=== PATIENT | male | born 1995 | race Caucasian/White ===

== ENCOUNTER 2024-12-11 01:20 | Inpatient (IN) | payer OTHER, SELFPAY ==
--- NOTE | ~2024-12-11 | CT_ITS ---
EXAMINATION: CT SOFT TISSUE NECK WITH CONTRAST CLINICAL INFORMATION: Strangulation, rule out vascular or soft tissue injury. COMPARISON: None available. TECHNIQUE: Following the intravenous administration of 80 mL of Omnipaque 350 intravenous contrast, helical imaging was performed in the axial plane with generation of coronal and sagittal reformatted images. This CT examination was performed using dose optimization techniques as appropriate, variously including the following: *Automated exposure control *Adjustment of mA and/or kV according to patient size (this includes techniques or standardized protocols for targeted exams where dose is matched to indication/reason for exam; i.e. extremities or head) *Use of iterative reconstruction technique FINDINGS: Lymph Nodes: -No abnormal lymphadenopathy. Carotid Sheath Structures: -Normal. No evidence of vascular injury. No hematoma. Salivary Glands: -Normal. Mucosal Space: -Mildly prominent tonsillar pillars soft tissues, probably reactive in nature. -Otherwise, oropharyngeal, nasopharyngeal, hypopharyngeal soft tissue structures appear normal. Mild thickening of the right aryepiglottic fold, nonspecific. Otherwise normal oropharynx, hypopharynx, and epiglottis. The suprahyoid airway is maintained. Visceral Space: -Thyroid gland: Normal. -The laryngeal and thyroid cartilage appear intact without fracture. -The right true vocal fold is lateralized, and there is mild prominence of the right laryngeal ventricle, suggesting right vocal cord paralysis or paresis. -The subglottic trachea is mild narrowing at the level of the thyroid gland uncertain etiology or significance. (Series 2, images [id number]). Retropharangeal Space: -Normal. Parapharyngeal Fat Planes: -Undisturbed and normal. Ironer Or Presser Spaces: -Normal. Imaged Intracranial Contents: -No mass effect, edema, or abnormal enhancement. Cortical and dural venous sinuses are patent. The skull base is normal. Globes and Orbits: -Normal. Paranasal Sinuses/Mastoids/Tympanic Spaces: -Moderate to severe circumferential mucosal thickening left maxillary sinus with associated air-fluid level. Mild mucosal thickening right maxillary sinus with tiny air-fluid level. Mild scattered mucosal thickening throughout the ethmoid sinuses right greater than left. Lung Apices and Superior Mediastinal Structures: -Superior mediastinal structures is minimally prominent main pulmonary artery. There are prominent lymph nodes in both hilar regions, the subcarinal region, and prevascular region, the largest measuring 1.1 cm in short axis. This is of uncertain etiology. Sarcoidosis is a consideration among other etiologies. -Imaged upper lungs are mildly degraded by motion artifact. There is mild mosaic attenuation, without focal consolidation or pneumothorax. There are no effusions. The central airways appear normal. -The partially imaged heart appears likely mildly enlarged. Bony Structures: -No suspicious bone lesions. No fractures. -No significant cervical degenerative change. -Suggestion of old right craniotomy, only partially imaged. -Normal TM joints. OTHER: -There is a ligature uriarte around the mid neck. CT/CT soft tissue neck w IV con IMPRESSION: 1. No definite fracture of the laryngeal cartilages, or bony fracture. 2. There are findings highly suggestive of right vocal cord paralysis or paresis. Correlation with prior history recommended. Direct visualization also recommended. 3. Mild narrowing of the subglottic trachea, at the level of the thyroid gland, uncertain significance, appearance suggests likely not based upon acute trauma, but rather chronic. This can be seen in prolonged intubation, intubation injury, prior tracheostomy, and with tracheomalacia. 4. No evidence of vascular injury or hematoma. Soft tissues are grossly unremarkable. 5. Maxillary sinus disease left greater than right, with air-fluid levels. Findings could represent acute sinusitis in the appropriate clinical setting. 6. Mediastinal and hilar lymphadenopathy, uncertain significance or etiology. Sarcoidosis is a consideration, among other etiologies. 7. Mild mosaic attenuation the lung parenchyma, most likely mild air trapping. Differential includes constrictive (obliterative) bronchiolitis, hypersensitivity pneumonitis, as well as less commonly bronchial asthma, vasculitis, and chronic PE. 8. Mild cardiomegaly suspected. Heart is only partially imaged. 9. There is a ligature melinda in the neck soft tissues. Electronically signed by: Sergio Felix MD 12/11/2024 08:38 AM [facility] [place]
--- NOTE | ~2024-12-11 | CT_ITS ---
CLINICAL HISTORY: abd pain, n v, constipation CT abdomen and pelvis without contrast Comparison: None Findings: Lung bases clear. Cholelithiasis. Otherwise normal gallbladder and bile ducts. Mild splenomegaly. Normal liver, pancreas, and adrenal glands. Unremarkable kidneys, ureters, and urinary bladder. No free fluid or free air within the abdomen or pelvis. Normal stomach, small bowel, appendix, and colon. Liquid stool throughout most of the colon. No aortic aneurysm. Bones intact. IMPRESSION: 1. Liquid stool throughout most of the colon consistent with diarrheal illness. 2. Mild splenomegaly. 3. Cholelithiasis with no findings of biliary ductal dilatation or cholecystitis. This document has been electronically signed by: Earl Iverson MD on 12/22/2024 21:33:50
--- NOTE | ~2024-12-11 | XR_ITS ---
EXAMINATION: XR CHEST CLINICAL INFORMATION: adenopathy on CT neck COMPARISON: March 22, 2013. TECHNIQUE: 2 views of the chest were obtained. FINDINGS: No consolidation, pleural effusion or pneumothorax. Cardiomediastinal silhouette size is normal. Osseous structures are intact. XR/XR chest 2V IMPRESSION: No acute airspace disease. Electronically signed by: Donato Díaz MD 12/11/2024 10:06 AM [facility] [place]
--- NOTE | ~2024-12-11 | XR_ITS ---
EXAMINATION: XR ABDOMEN KUB CLINICAL INDICATION: constipation,diarrhea,?obstruction COMPARISON: None available. TECHNIQUE: AP view of the abdomen. FINDINGS: There are minimally dilated loops of small bowel in the left midabdomen, measuring up to 4.8 cm. There is no thickening of the valvulae conniventes. There is mild gaseous distention of the right colon. No significant stool burden. No free air identified. No organomegaly or abnormal soft tissue calcifications. No bony abnormalities. XR/XR KUB IMPRESSION: 1. Findings which may suggest ileus or small bowel obstruction. Electronically signed by: Sergio Felix MD 12/22/2024 04:58 PM EDT
[2024-12-11 01:38] VITALS: BP 150/97; PULSE 98; RESP 17; TEMP 37; O2SAT 99; BMI 31.5
[2024-12-11 01:59] VITALS: BP 150/97; PULSE 98; RESP 17; TEMP 37; O2SAT 99
--- NOTE | 2024-12-11 02:03 | PC.NURSE ---
Patient presents from home tonight after an unsuccessful attempt at hanging himself from his closet door with a plastic cord. Patient is noted to have ligature uriarte around the neck. He endorses losing consciousnesses prior to falling and hitting a ladder that was nearby to assist in the attempt. Patient complains of difficulty swallowing and throat pain but does also endorse vocal cord paralysis since a young age. MD [facility] immediately made aware of ligature uriarte and difficulty swallowing.
[2024-12-11 02:11] LABS: Basophils Percent Auto 0.4 % (0-2); PLT CLUMP 1; SCAN SMEAR FLAG 1
[2024-12-11 02:13] LABS: Eosinophils Absolute Auto 0.3 X10*3/uL (0.0-0.4); Eosinophils Percent Auto 2.8 % (0-4); Hematocrit 50.9 % (42.0-52.0); Hemoglobin 18.2 g/dl (14.0-18.0); Imm Gran Abs Auto 0.03 X10*3/uL (0.00-0.03); Imm Gran Pct Auto 0.3 % (0.0-0.4); Lymphocytes Absolute Auto 2.5 X10*3/uL (1.2-4.9); Lymphocytes Percent Auto 27.2 % (20-40); MANUAL DIFF FLAG SCAN; Mean Corpuscular HGB Conc 35.8 g/dl (31.0-36.0); Mean Corpuscular Hemoglobin 30.8 pg (27.0-33.0); Mean Corpuscular Volume 86.1 fL (80.0-98.0); Mean Platelet Volume 10.5 fL (9.4-12.4); Monocytes Absolute Auto 0.4 X10*3/uL (0.1-1.2); Monocytes Percent Auto 4.6 % (2-11); Neutrophils Percent Auto 64.7 % (45-73); Red Blood Count 5.91 X10*6/uL (4.60-5.80); Red Cell Distribution Width 12.3 % (11.0-16.0)
[2024-12-11 02:14] LABS: White Blood Count 9.3 X10*3/uL (4.8-10.8)
--- NOTE | 2024-12-11 02:34 | ED.GENADULT ---
HPI - General Adult General Chief complaint: Psychiatric Symptoms Stated complaint: SI Time Seen by Provider: 12/11/24 02:19 Source: patient Mode of arrival: ambulatory Limitations: no limitations History of Present Illness ED Provider: DR. Hernández HPI narrative: 29-year-old male who came to the ED for evaluation after attempt to strangulate himself at home. Patient has been going through depression for the past few months last night he hanging a plastic rope on the door and climbed a ladder and hang himself in the rope, the patient dropped on the floor after few seconds patient thinks that he passed out, no voice change (patient with a history of 1 vocal cord paralysis ) able to swallow in the emergency department, no neck pain. Patient has an obvious ligature uriarte around the neck. Related Data Allergies Allergy/AdvReac Type Severity Reaction Status Date / Time egg [EGG] Allergy Unknown ITCHY Verified 12/11/24 01:54 THROAT/VOMITING nickel [NICKEL] Allergy Unknown UNKNOWN Verified 12/11/24 01:54 Review of Systems Review of Systems: all other systems are reviewed and are negative Constitutional: Reports as per HPI and Reports no additional constitutional complaints Eyes: Reports as per HPI and Reports no additional eye complaints Reports system reviewed and no additional complaints, except as documented Cardiovascular: Reports as per HPI and Reports no additional cardiovascular complaints Respiratory: Reports as per HPI and Reports no additional respiratory complaints Gastrointestinal: Reports as per HPI and Reports no additional gastrointestinal complaints Genitourinary: Reports no additional female genitourinary complaints Musculoskeletal: Reports no additional musculoskeletal complaints Skin/Breast: Reports system reviewed and no additional complaints, except as docu Psychiatric: Reports no additional psychiatric complaints Endocrine: Reports no additional endocrine complaints Hematologic/Lymphatic: Reports no additional hematologic/lymphatic complaints Allergic/Immunologic: Reports no additional allergic/immunologic complaints Reports system reviewed and no additional complaints, except as documented and Reports Abnormal speech present [facility] Social History Social History Smoked in Last 30 Days: Yes Use of substances other than those prescribed or required for medical reasons: No Advance Directives: No Advance Directives Information Provided: Yes Do you have a plan to hurt others: No Plan Physical Exam ED Vital Signs: Vital Signs - 24 hr 12/11/24 01:38 12/11/24 01:59 Temperature 98.6 F 98.6 F Pulse Rate 98 98 Respiratory Rate 17 17 Blood Pressure 150/97 H 150/97 H Pulse Oximetry 99 99 Oxygen Delivery Method Room Air Room Air BMI result Body Mass Index 31.5 Vital signs have been reviewed and appear to be correct. Blood pressure elevated. Heart rate normal. Respiratory rate normal. Temperature normal. Oxygen saturation normal. Appearance: Alert. Oriented X3. No acute distress. Head: Normal external exam. Normocephalic. Atraumatic. No Farr signs noted. No raccoon eyes noted Eyes: PERRLA. EOMI. Conjunctiva and sclera normal. Eyelids normal. ENT: TM's Normal. Pharynx normal. Uvula midline. Moist mucous membranes. No trismus noted. No drooling noted. No muffled voice noted. Neck: ligature melinda around the anterior aspect of the neck. CVS: Normal heart rate and rhythm. Heart sound normal. No murmurs noted. Pulses normal throughout. Respiratory: No respiratory distress. Painless inspiration. Breath sounds normal. No wheezes/rales/rhonchi noted. Chest nontender. No accessory muscle usage noted or decreased air movement noted. Abdomen: Soft and nontender. Bowel sounds normal in all 4 quadrants. No distention noted. No organomegaly noted. No visible injury noted. Back: No CVA tenderness. Full range of motion noted. Skin: Skin warm and dry. Normal skin color. Normal skin turgor. No rashes/lesions/lacerations noted. Extremities: No lower extremity edema. Extremities exhibit normal range of motion. Extremities nontender. Neuro: Mental status: Normal attention, orientation, memory, and affect. Cranial nerves: Pupils are equal, round and reactive to light, EOMI, visual vieyra are fall, face is symmetric, facial sensations are normal. Motor examination normal muscle tone, strength to 4 extremities. DTR are +2, planter's are flexor. Sensory exam; normal coordination, no ataxia, gait stable. Cerebellar exam: [id number]-[id number] and eapy-vf-bwnf is normal. Extrapyramidal system: No tremors, no rigidity with normal facial expressions. Pronator drift not present Patient Orientation: Person, Place, Time and Situation, okay hygiene and grooming. Fair eye contact, attentive, no tics or tremors. Level of Consciousness: Awake, Appropriate and Alert Patient Behavior: Appropriate, Guarded, Cooperative and Anxious Mood Description: Constricted, Blunted and Apprehensive Affect Description: Constricted, Blunted and Apprehensive Patient Cognition Impaired: No Ability to Follow Directions: Excellent Speech Pattern: Clear, Appropriate and Spontaneous Speech, nonpressured, spontaneous with regular rate and rhythm, normal volume and prosody. No dysarthria. Memory Description: Intact, Immediate Intact and Short Term Intact Hallucinations: None Delusions: Not Present Thought Process: Intact Thought Content: positive for Intact, positive for Logical, denies Suicidal Ideation and denies Homicidal Ideation. Depressive Symptoms: Not present. Judgement and Insight: Limited but adequate. Course Reevaluation(s) Reevaluation #1: 29-year-old male s/p attempt to strangulated himself, no acute soft tissue damage to the neck, normal neuro exam, patent airway, no stridor. will clear medically full care team to evaluate. Continue one-to-one observation. Await for CT soft tissue for evaluation of neck structure tear or contusion case signed out to Dr. Kenny Time: 06:47 Medications Administered Discontinued Medications Generic Name Dose Route Start Last Admin Trade Name Freq PRN Reason Stop Dose Admin Sodium Chloride 1,000 mls @ 999 mls/hr 12/11/24 03:30 12/11/24 03:52 Ns IV 12/11/24 04:30 Infused .Q1H1M JASMINA Infusion Iohexol 80 ml 12/11/24 03:49 12/11/24 03:50 Iohexol 350 Mg/Ml 100 Ml Infus..Btl IV 12/11/24 03:50 80 ml ONCE ONE Administration Medical Decision Making Differential Diagnosis Differential Diagnoses: The differential diagnosis associated with the presentation includes ( Soft tissue neck damage, cervical spine fracture, airway compromise, medical clearance, electrolyte derangement, severe anemia.) Admission/Observation Consideration of admission/observation: Escalation of care including admission/observation considered Lab Data MDM Lab Attestation statement: I reviewed the patient's lab results. 12/11/24 02:06 12/11/24 02:06 Labs: Lab Results 12/11/24 Range/Units 02:06 WBC 9.3 (4.8-10.8) X10*3/uL RBC 5.91 H (4.60-5.80) X10*6/uL Hgb 18.2 H (14.0-18.0) g/dl Hct 50.9 (42.0-52.0) % MCV 86.1 (80.0-98.0) fL MCH 30.8 (27.0-33.0) pg MCHC 35.8 (31.0-36.0) g/dl RDW 12.3 (11.0-16.0) % Plt Count 172 (160-400) X10*3/uL MPV 10.5 (9.4-12.4) fL Immature Gran % (Auto) 0.3 (0.0-0.4) % Neut % (Auto) 64.7 (45-73) % Lymph % (Auto) 27.2 (20-40) % [place] % (Auto) 4.6 (2-11) % Eos % (Auto) 2.8 (0-4) % Baso % (Auto) 0.4 (0-2) % Lymph # (Auto) 2.5 (1.2-4.9) X10*3/uL [place] # (Auto) 0.4 (0.1-1.2) X10*3/uL Eos # (Auto) 0.3 (0.0-0.4) X10*3/uL Baso # (Auto) 0.0 (0.0-0.2) X10*3/uL Abs Immat Gran (auto) 0.03 (0.00-0.03) X10*3/uL Absolute Neuts (auto) 6.0 (2.0-8.3) x10*3/uL Absolute Nucleated RBC 0.000 (0.0-0.012) X10*3/uL Nucleated RBC % (auto) 0.0 (0.0-0.2) /100WBC Smear Tech's Comments VERIFIED Sodium 139 (135-145) mmol/L Potassium 3.6 (3.3-5.1) mmol/L Chloride 106 (96-108) mmol/L Carbon Dioxide 23 (22-29) mmol/L Anion Gap 14 (12-20) BUN 13 (9-16) mg/dL Creatinine 0.82 (0.5-1.4) mg/dL Estim Creat Clear Calc 135.9 Estimated GFR > 60 Random Glucose 92 (60-115) mg/dL Calcium 9.2 (8.4-10.2) mg/dL Total Bilirubin 1.1 H (0.0-1.0) mg/dL AST 23 (5-37) U/L ALT 21 (0-40) U/L Alkaline Phosphatase 78 (39-117) U/L Total Protein 8.5 H (6.5-8.0) g/dL Albumin 4.7 (3.5-5.0) g/dL Salicylates < 5.0 L (15-30) mg/dL Ethyl Alcohol < 10 mg/dL Independent Interpretation I performed an independent interpretation of an: CT Scan ( CT soft tissue of the neck:) Radiology Impression Discussion of test interpretation with radiology: I have reviewed the radiologist's reading. Discharge Plan Discharge Clinical Impression: Depression, Suicidal ideation, Strangulation or suffocation by means, undetermined whether accidentally or purposely inflicted Patient Disposition: Still a Patient Interventions: [place]-Suicide Risk Severity Scale Last Done: 12/11/24 01:55 Print Language: Swedish
[2024-12-11 02:36] LABS: Alanine Aminotransferase 21 U/L (0-40); Albumin Level 4.7 g/dL (3.5-5.0); Anion Gap 14 (12-20); Aspartate Amino Transferase 23 U/L (5-37); Bilirubin Total 1.1 mg/dL (0.0-1.0); Blood Urea Nitrogen 13 mg/dL (9-16); Calcium 9.2 mg/dL (8.4-10.2); Carbon Dioxide 23 mmol/L (22-29); Chloride 106 mmol/L (96-108); Creatinine Clr Calc Pharmacy 135.9; Estimated Glomerular Filt Rate > 60; Ethanol < 10 mg/dL; Glucose Random 92 mg/dL (60-115); Potassium 3.6 mmol/L (3.3-5.1); Sodium 139 mmol/L (135-145); Total Protein 8.5 g/dL (6.5-8.0)
[2024-12-11 02:43] LABS: Platelet Count 172 X10*3/uL (160-400); SLIDE REVIEW VERIFIED
[2024-12-11 02:59] LABS: Alkaline Phosphatase 78 U/L (39-117)
[2024-12-11 03:04] LABS: Salicylate < 5.0 mg/dL (15-30)
[2024-12-11] MEDS: 0.9 % Sodium Chloride 1,000 ML 999 ML IV (03:34)
[2024-12-11] MEDS: iohexoL 350 MG/ML 100 ML INFUS..BTL 80 ML IV (03:50)
--- OUTSIDE RECORDS SUMMARY | 2024-12-11 06:26 | XMS_ITS | Encounter Summary ---
Author Organization [facility] Address [address] [place] [address] Phone Care Team Providers Care Electrical Service Technician Name Role Phone Med Garrett MD Primary Care Provider [phone] Encounter Details Date Type Department Care Team (Late st Contact Info) Description 07/24/[address] [facility] [place] [address] [place], [place] [id number] Family Medicine, Physician [address] [place] [address] Social History Tobacco Use Types Packs/Day Years Used Date Smoking Tobacco: Never Assessed Sex and Gender Information Value Date Recorded Sex Assigned at Not on file Legal Sex Male 4:46 PM EDT Gender Identity Not on file Sexual Orientation Not on file documented as of this encounter Plan of Treatment Not on file documented as of this encounter Visit Diagnoses Not on filedocumented in this encounter Care Teams Electrical Service Technician Relationship Specialty Start Date End Date Med Garrett MD [address] [place] [address] PCP - General 05/24/17 11/29/22 documented as of this encounter
--- OUTSIDE RECORDS SUMMARY | 2024-12-11 06:26 | XMS_ITS | Encounter Summary ---
Author Organization [facility] Address [address] [place] [address] Phone Care Team Providers Care Harbormaster Name Role Phone Med Garrett MD Primary Care Provider [phone] Encounter Details Date Type Department Care Team (Late st Contact Info) Description 07/25/2010 [place] [facility] [place] [address] [place], [place] [phone] Family Medicine, Physician [address] [place] [address] Social History Tobacco Use Types Packs/Day Years [...] on filedocumented in this encounter Care Teams Harbormaster Relationship Specialty Start Date End Date Med Garrett MD [address] [place] [address] PCP - General 05/24/17 11/29/22 documented as of this encounter
--- OUTSIDE RECORDS SUMMARY | 2024-12-11 06:26 | XMS_ITS | Encounter Summary ---
Author Organization [facility] Address [address] [place] [address] Phone Care Team Providers Care Cds Sales Advisor Name Role Phone Med Garrett MD Primary Care Provider [phone] Encounter Details Date Type Department Care Team (Late st Contact Info) Description 03/24/2013 Documentation [facility] [place] Family Medicine [address] [place], [place] [phone] Family Medicine, Physician [address] [place] [address] Social History Tobacco Use Types Packs/Day Years [...] on filedocumented in this encounter Care Teams Cds Sales Advisor Relationship Specialty Start Date End Date Med Garrett MD [address] [place] [address] PCP - General 05/24/17 11/29/22 documented as of this encounter
--- OUTSIDE RECORDS SUMMARY | 2024-12-11 06:26 | XMS_ITS | Clinical Summary ---
Author Organization [facility] Address [address] [place] [address] Phone Care Team Providers Care Brush Worker Name Role Phone Unavailable Primary Care Provider Unavailabl e Immunizations Immunization Administration Dates Next Due DTP 01/17/1998, 4,1993,09/15,1993 Hep B, ped/adol 1994,1993,1993 Hib (PRP-T) 06/14/1994, 4,1993,06/14 Influenza Split 07/20/2010 Influenza, injectable, trivalent 002,07/29/1999,08/11/1998,07/27 MMR 01/17/1998,06/14/1994 Meningococcal Conj (Menactra) MCV4P 02/13/2007 OPV 01/17/1998, 4,1993,06/14 Td (adult) (MBL), 2 Lf tetan us toxoid, PF, adsorbed 06/01/2005 Tdap 07/20/2010 Varicella 07/20/2010,02/21/1996 Family History Relation Name Status Comments Maternal Grandmother Materna l grandmother: Hypertension Mother Mother: Thyroid disease Social History Tobacco Use Types Packs/Day Years Used Date Smoking Tobacco: Never Assessed Sex and Gender Information Value Date Recorded Sex Assigned at Not on file Legal Sex Male 4:46 PM EDT Gender Identity Not on file Sexual Orientation Not on file Last Filed Vital Signs Vital Sign Reading Time Taken Comments Blood Pressure 118/60 07/20/2010 12:00 AM EDT Pulse - - Temperature 36.3 ??C (97.4 ??F) 07/13/2010 12:00 AM E DT Respiratory Rate - - Oxygen Saturation - - Inhaled Oxygen Concentration - - Weight 77.8 kg (171 lb 8 oz) 07/20/2010 12:00 AM EDT Height 166.4 cm (5' 5.5 ) 07/20/2010 12:00 AM ED T Body Mass Index 28.11 07/20/2010 12:00 AM EDT Plan of Treatment Health Maintenance Due Date Last Done Comments Consider Men B Vaccine (1 of 2 - Bexsero 2-dose series) 2009 DTaP,Tdap,and Td Vaccines (7 - Td or Tdap) 07/20/2020 07/20/2010, 06/01/2005, 01/17/1998, Additional history exists Influenza Vaccines (#1) 2024 07/20/20, 08/27/2002, 07/29/1999, Additional history exists COVID-19 Vaccine ( season) 2024 Hepatitis B Vaccines Completed 1994, 1993, 1993 HIB Vaccines Completed 06/14/1994, 01/1994, 1993, Additional history exists IPV Vaccines Completed 01/17/1998, 09/14, 1993, Additional history exists MMR Vaccines Completed 01/17/1998, 06/14/1994 Meningococcal Vaccine Aged Out 02/13/2007 No solitario brian eligible based on patient's age to complete this topic Varicella Vaccines Completed 07/20/2010, 02/21/1996 HPV Vaccines Aged Out No longer eligi ble based on patient's age to complete this topic Hepatitis A Vaccines Aged Out No long er eligible based on patient's age to complete this topic Men B Vaccine Aged Out No longer elig ible based on patient's age to complete this topic Pneumococcal Vaccine Aged Out No long er eligible based on patient's age to complete this topic
--- OUTSIDE RECORDS SUMMARY | 2024-12-11 06:26 | XMS_ITS | Encounter Summary ---
Author Organization [facility] Address [address] [place] [address] Phone Care Team Providers Care Justice Court Deputy Clerk Name Role Phone Med Garrett MD Primary Care Provider [phone] Encounter Details Date Type Department Care Team (Late st Contact Info) Description 07/25/2010 Documentation [facility] [place] [address] [place], [place] [phone] Family Medicine, Physician [address] [place] [address] Social History Tobacco Use Types Packs/Day Years [...] on filedocumented in this encounter Care Teams Justice Court Deputy Clerk Relationship Specialty Start Date End Date Med Garrett MD [address] [place] [address] PCP - General 05/24/17 11/29/22 documented as of this encounter
--- OUTSIDE RECORDS SUMMARY | 2024-12-11 06:26 | XMS_ITS | Encounter Summary ---
Author Organization [facility] Address [address] [place] [address] Phone Care Team Providers Care Cantilever Crane Operator Name Role Phone Med Garrett MD Primary Care Provider [phone] Encounter Details Date Type Department Care Team (Late st Contact Info) Description 05/31/2011 Documentation [facility] [place] Family Medicine [address] [place], [place] [phone] Family Medicine, Physician [address] [place] [address] Social History Tobacco Use Types Packs/Day Years [...] on filedocumented in this encounter Care Teams Cantilever Crane Operator Relationship Specialty Start Date End Date Med Garrett MD [address] [place] [address] PCP - General 05/24/17 11/29/22 documented as of this encounter
--- OUTSIDE RECORDS SUMMARY | 2024-12-11 06:26 | XMS_ITS | Encounter Summary ---
Author Organization [facility] Address [address] [place] [address] Phone Care Team Providers Care Back Tender Insulation Board Name Role Phone Med Garrett MD Primary Care Provider [phone] Encounter Details Date Type Department Care Team (Late st Contact Info) Description 07/25/2010 Documentation [facility] [place] Family Medicine [address] [place], [place] [phone] Family Medicine, Physician [address] [place] [address] Social History Tobacco Use Types Packs/Day Years [...] on filedocumented in this encounter Care Teams Back Tender Insulation Board Relationship Specialty Start Date End Date Med Garrett MD [address] [place] [address] PCP - General 05/24/17 11/29/22 documented as of this encounter
--- OUTSIDE RECORDS SUMMARY | 2024-12-11 06:26 | XMS_ITS | Encounter Summary ---
Author Organization [facility] Address [address] [place] [address] Phone Care Team Providers Care Evp And Chief Operating Officer Name Role Phone Med Garrett MD Primary Care Provider [phone] Encounter Details Date Type Department Care Team (Late st Contact Info) Description 05/30/2017 Conversion Encounter [facility] [place] [address] [place] [address] Social History Tobacco Use Types Packs/Day Years [...] on filedocumented in this encounter Care Teams Evp And Chief Operating Officer Relationship Specialty Start Date End Date Med Garrett MD [address] [place] [address] PCP - General 05/24/17 11/29/22 documented as of this encounter
--- NOTE | 2024-12-11 07:10 | PC.NURSE ---
Assumed care of patient at 0645, appears to be in no apparent distress, sleeping at this time, respirations even and unlabored. Continue plan of care for CARE team jesus alberto
[2024-12-11 07:36] VITALS: BP 114/67; PULSE 84; RESP 16; TEMP 36.8; O2SAT 95
[2024-12-11 14:32] LABS: Appearance Urine Clear; Color Urine Yellow; Glucose Urine UA Negative (Negative); Leukocyte Esterase Urine Negative (Negative); Nitrite Urine Negative (Negative); PH 5.5 (5.0-9.0); Specific Gravity - Urine >= 1.030 (1.005-1.025); Urine Blood Negative (Negative); Urine Ketones 15 mg/dL (Negative); Urine Protein Negative (Neg-Trace)
[2024-12-11 14:34] LABS: Bacteria Urine None Seen (None Seen); Hyaline Casts Urine 0-2 /LPF (0-2); RBC Urine 0-2 /HPF (0-2); Squamous Epithelial Cell Urine 0-2 /HPF (0-2); WBC Urine 0-5 /HPF (0-5)
--- NOTE | 2024-12-11 14:36 | PHA.MEDREC ---
Pharmacy Consult ? Medication Reconciliation Pharmacy has completed the medication reconciliation. Spoke with patient and he confirmed he is not taking any medications at this time.
[2024-12-11 14:59] LABS: Amphetamine Screen Urine Not Detected (Not Detect); Barbiturates, Urine Not Detected (Not Detect); Benzodiazepines Screen Urine Not Detected (Not Detect); Buprenorphine Scr Not Detected (Not Detect); Cannabinoid Screen Urine Not Detected (Not Detect); Cocaine Screen Urine Not Detected (Not Detect); Fentanyl, urine Not Detected (Not Detect); Methadone Screen, Urine Not Detected (Not Detect); Opiate Screen Urine Not Detected (Not Detect); Oxycodone Screen Urine Not Detected (Not Detect); Phencyclidine Screen Urine Not Detected (Not Detect)
--- NOTE | 2024-12-11 19:49 | PC.NURSE ---
patient appears to remain at rest presently respirations are even and unlabored patient appears in no distress.
[2024-12-11 20:23] VITALS: BP 130/80; PULSE 85; RESP 20; TEMP 36.8; O2SAT 97
[2024-12-12 10:16] VITALS: BP 121/79; PULSE 69; RESP 16; TEMP 36.7; O2SAT 98
[2024-12-12 17:14] VITALS: BP 116/77; PULSE 81; RESP 15; TEMP 36.8; O2SAT 99
--- NOTE | 2024-12-12 19:17 | PC.NURSE ---
patient appears to remain at rest presently respirations are even and unlabored appears in no distress
--- NOTE | 2024-12-13 07:12 | PC.NURSE ---
Assumed care of patient at 0645, patient appears to be in no apparent distress noted, sitting in chair eating breakfast. Continue plan of care for IPLOC
[2024-12-13 08:01] VITALS: BP 114/76; PULSE 82; RESP 18; TEMP 36.6; O2SAT 95
--- NOTE | 2024-12-13 19:08 | PC.NURSE ---
Patient has been calm and cooperative all day, pleasant, withdrawn in his room but willing to talk if approached. no apparent distress noted at this time
--- NOTE | 2024-12-13 22:45 | PC.NURSE ---
Patient currently sleeping. No distress noted. Assumed care of patient at this time. will continue to monitor through the night
[2024-12-14 06:09] VITALS: BP 121/75; PULSE 74; RESP 16; TEMP 36.3; O2SAT 98
--- NOTE | 2024-12-14 10:00 | PC.NURSE ---
pt has been sleeping all morning, has not eaten his breakfast
--- NOTE | 2024-12-14 12:56 | PC.NURSE ---
report given to Kalani luis on M5
--- NOTE | 2024-12-14 13:00 | PC.NURSE ---
report given to Kalani DEJESUS
[2024-12-14 13:02] VITALS: BP 123/77; PULSE 78; RESP 16; TEMP 36.9; O2SAT 99
[2024-12-14 13:15] VITALS: BP 139/85; PULSE 91; RESP 18; TEMP 36.9; O2SAT 99
[2024-12-14 13:42] VITALS: BMI 30.6
--- NOTE | 2024-12-14 18:18 | PC.ADMIT ---
Rubén, goes by Miriam, is a 29 year old male [place] [facility] [place] [facility] [place] [facility] at 1303 this afternoon s/p suicide attempt by hanging. In the CARE team assessment Miriam had reported increasing depression since August and was recently promoted at work taking on more hours 50-55 per week and working until midnight. He takes no medication for depression, has no PCP, therapist, or psychiatric provider. He has never been inpatient (psychiatric setting) before and denies previous suicide attempts or SI. The patient had hung himself with a plastic cord which broke and? then called his friend and was brought to the ED. Skin and safety check performed and he has visible ligature uriarte on front and back of neck. He has a scar across his head (had brain surgery as a child) and has an old tracheotomy scar to neck, and a G-tube?site scar, otherwise unremarkable. He was pleasant and cooperative on admission, superficially bright and smiling, answering questions appropriately when asked. At baseline he reports he has only 1 vocal cord and speaks with a raspy voice, this is not new. He signed a CV with Kacey and? feels it was a blessing that he did not succeed in his attempt. His tox screen was negative and denies any recent substance/alcohol use. He smokes 1-2 cigarettes/day and uses Zyn nicotine pouches to help with cutting down on smoking.. He declined NRT and desires smoking cessation consultation and is accepting of Flu vaccine. He denies present SI/HI/AVH and states he would be able to come to staff if he felt like harming himself. He rates depression high and anxiety I can't really quantify. Oriented?to the unit and placed on q 15 min safety checks at this time.?
[2024-12-14] MEDS: Flu Vacc TS2024-25(6mos up)/PF 0.5 ML SYRINGE IM (18:44)
[2024-12-14 19:44] VITALS: O2SAT 97
[2024-12-15 07:44] VITALS: BP 110/64; PULSE 82; RESP 18; TEMP 36.6; O2SAT 98
[2024-12-15 08:42] LABS: Estimated Average Glucose 94 mg/dL; Hemoglobin A1C 142.0418 umol/L; Hemoglobin A1c % 4.9 % (<6.0)
[2024-12-15 08:49] LABS: Cholesterol 141 mg/dL (<200); HDL Cholesterol 39 mg/dL (>40); LDL Cholesterol Calculated 80 mg/dL (<100); Magnesium 2.2 mg/dL (1.6-2.6); Triglycerides 111 mg/dL (<150)
[2024-12-15 09:31] LABS: Free T4 (Free Thyroxine) 1.05 ng/dL (0.71-1.85); Thyroid Stimulating Hormone 4.61 uIU/mL (0.32-4.0)
[2024-12-15 09:43] LABS: Folate 12.5 ng/mL (> or = 4.0); Vitamin B12 501 pg/mL (200-900)
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
[2024-12-15 20:00] VITALS: BP 144/86; PULSE 86; RESP 16; TEMP 36.6; O2SAT 97
[2024-12-15] MEDS: traZODone HCL 50 MG TABLET PO (20:11)
[2024-12-16 07:52] VITALS: BP 107/55; PULSE 76; RESP 16; TEMP 36.5; O2SAT 96
[2024-12-16] MEDS: Escitalopram Oxalate 5 MG TABLET PO (08:55)
--- NOTE | 2024-12-16 13:15 | HO.PSYCHPN ---
Subjective Subjective Date of Service: 12/16/24 Reason For Visit: Depression Interim History: Active on unit, attending groups. Pt reports feeling pretty good today; denies any side effects from medications. Reports sleeping well last night. States his depression is a /10. denies SI/HI/VH/AH. Medication Compliance: Yes Side effects from medications: No Mental Status Exam Mental Status Exam Patient Appearance: Appropriate Patient Orientation: Person, Place, Time and Situation Level of Consciousness: Awake and Alert Patient Behavior: Appropriate, Cooperative and Good Eye Contact Mood Description: Calm Affect Description: Calm Ability to Follow Directions: Good Speech Pattern: Clear and Appropriate Memory Description: Intact Hallucinations: None Delusions: Not Present Thought Process: Intact Thought Content: positive for Intact Diagnostics Vital Signs (24Hr): Vital Signs - 24 hr 12/15/24 20:00 12/16/24 07:52 Temperature 97.8 F 97.7 F Pulse Rate 86 76 Respiratory Rate 16 16 Blood Pressure 144/86 H 107/55 L Pulse Oximetry 97 96 Oxygen Delivery Method Room Air BMI result Body Mass Index 30.6 Labs 12/11/24 02:06 12/11/24 02:06 Labs: Laboratory Results - last 48 hr 12/15/24 07:27 Estimat Average Glucose 94 Hemoglobin A1c % 4.9 Magnesium 2.2 Triglycerides 111 Cholesterol 141 LDL Cholesterol, Calc 80 HDL Cholesterol 39 L Vitamin B12 501 Folate 12.5 TSH 4.61 H Free T4 1.05 Imaging Radiology Impressions: ITS Impressions Soft Tissue Neck CT 12/11/24 03:50 IMPRESSION: 1. No definite fracture of the laryngeal cartilages, or bony fracture. 2. There are findings highly suggestive of right vocal cord paralysis or paresis. Correlation with prior history recommended. Direct visualization also recommended. 3. Mild narrowing of the subglottic trachea, at the level of the thyroid gland, uncertain significance, appearance suggests likely not based upon acute trauma, but rather chronic. This can be seen in prolonged intubation, intubation injury, prior tracheostomy, and with tracheomalacia. 4. No evidence of vascular injury or hematoma. Soft tissues are grossly unremarkable. 5. Maxillary sinus disease left greater than right, with air-fluid levels. Findings could represent acute sinusitis in the appropriate clinical setting. 6. Mediastinal and hilar lymphadenopathy, uncertain significance or etiology. Sarcoidosis is a consideration, among other etiologies. 7. Mild mosaic attenuation the lung parenchyma, most likely mild air trapping. Differential includes constrictive (obliterative) bronchiolitis, hypersensitivity pneumonitis, as well as less commonly bronchial asthma, vasculitis, and chronic PE. 8. Mild cardiomegaly suspected. Heart is only partially imaged. 9. There is a ligature melinda in the neck soft tissues. Electronically signed by: Sergio Felix MD 12/11/2024 08:38 AM EST RP Chest X-Ray 12/11/24 09:45 IMPRESSION: No acute airspace disease. Electronically signed by: Donato Díaz MD 12/11/2024 10:06 AM EST RP Medications Medications Current Medications Acetaminophen (Acetaminophen 325 Mg Tablet) 650 mg PO Q6H PRN PRN Reason: Headache/Pain, Scale 1-10 Al Hydroxide/Mg Hydroxide (Magnesium Hydrox/Alum Hydrox 30 Ml Oral.Susp) 30 ml PO Q6H PRN PRN Reason: Heartburn/Nausea Escitalopram Oxalate (Escitalopram Oxalate 5 Mg Tablet) 5 mg PO DAILY JASMINA Last Admin: 12/16/24 08:55 Dose: 5 mg Hydroxyzine HCl (Hydroxyzine Hcl 25 Mg Tablet) 25 mg PO Q6H PRN PRN Reason: mild anxiety Magnesium Hydroxide (Milk Of Magnesia 30 Ml Oral.Susp) 30 ml PO DAILY PRN PRN Reason: Constipation Nicotine Polacrilex (Nicotine Polacrilex 2 Mg Gum) 4 mg BUCCAL Q2H PRN PRN Reason: Nicotine Cravings Olanzapine (Olanzapine 5 Mg Tablet) 5 mg PO Q4H PRN PRN Reason: agitation Trazodone HCl (Trazodone Hcl 50 Mg Tablet) 50 mg PO BEDTIME MRX1 PRN PRN Reason: Insomnia Last Admin: 12/15/24 20:11 Dose: 50 mg Allergies Allergies Allergy/AdvReac Type Severity Reaction Status Date / Time egg [EGG] Allergy Unknown ITCHY Verified 12/11/24 01:54 THROAT/VOMITING nickel [NICKEL] Allergy Unknown UNKNOWN Verified 12/11/24 01:54 Assessment & Plan Assessment & Plan (1) Depression: Status: Acute Code(s): F32.A - Depression, unspecified (2) Strangulation or suffocation by means, undetermined whether accidentally or purposely inflicted: Status: Acute Code(s): T71.194A - Asphyxiation due to mechanical threat to breathing due to other causes, undetermined, initial encounter (3) Seasonal affective disorder: Status: Acute Code(s): F33.8 - Other recurrent depressive disorders Plan Admit, CV, 15 minute checks Collateral Contact-pt will decide-he believes he will involve his mother, not his father. Diagnostics as needed Encourage milieu involvement [facility] referral for consult Pt is agreeable to medication trial, will begin Lexapro 5 mg a.m. Discharge planning. Pt would like help with finding a PCP who focuses on ENT/Respiratory due to his history,OP therapy and psychiatry He wants to learn how to focus on himself, good health and how to prevent sx like this from recurring. 12/16: continue current tx plan. Patient educated on: diagnosis and medication risk/benefits Reason for continued inpatient stay Substantial Risk for: med/psych decompensation Time Spent With Patient Time: Total time managing care of this patient today _20___ minutes.
[2024-12-16 19:58] VITALS: BP 130/73; PULSE 86; TEMP 36.9; O2SAT 98
[2024-12-16] MEDS: traZODone HCL 50 MG TABLET PO (20:29)
[2024-12-16] MEDS: hydrOXYzine HCL 25 MG TABLET PO (20:29)
[2024-12-17 08:00] VITALS: BP 115/59; PULSE 61; RESP 20; TEMP 36.4; O2SAT 98
[2024-12-17] MEDS: Escitalopram Oxalate 5 MG TABLET PO (08:33)
--- NOTE | 2024-12-17 13:22 | HO.PSYCHPN ---
Subjective Subjective Date of Service: 12/17/24 Reason For Visit: Depression Subjective Notes: Conditional Voluntary Healthcare Proxy: No Guardianship: No Medical Problems Affecting Mental Status: No Interim History: Tolerating Escitalopram at a low dose. States parents are aware of his admission, however he has not told them of his suicide attempt. Reports he is attending groups, and finding them useful Declines offer for family meeting to discuss increasing community/family support. Medication Compliance: Yes Side effects from medications: No Attending Groups: Yes Review of Systems Acute medical concerns: No Medical Review of Systems: unchanged Review of Systems Review of Systems denies Mental Status Exam Mental Status Exam Patient Appearance: Appropriate Patient Orientation: Person, Place, Time and Situation Level of Consciousness: Awake and Alert Patient Behavior: Appropriate, Cooperative and Good Eye Contact Mood Description: Calm Affect Description: Calm Ability to Follow Directions: Good Speech Pattern: Clear and Appropriate Memory Description: Intact Hallucinations: None Delusions: Not Present Thought Process: Intact Thought Content: positive for Intact Diagnostics Vital Signs (24Hr): Vital Signs - 24 hr 12/16/24 19:58 12/17/24 08:00 Temperature 98.5 F 97.5 F Pulse Rate 86 61 Respiratory Rate 20 Blood Pressure 130/73 115/59 L Pulse Oximetry 98 98 Oxygen Delivery Method Room Air Room Air BMI result Body Mass Index 30.6 Labs 12/11/24 02:06 12/11/24 02:06 Imaging Radiology Impressions: ITS Impressions Soft Tissue Neck CT 12/11/24 03:50 IMPRESSION: 1. No definite fracture of the laryngeal cartilages, or bony fracture. 2. There are findings highly suggestive of right vocal cord paralysis or paresis. Correlation with prior history recommended. Direct visualization also recommended. 3. Mild narrowing of the subglottic trachea, at the level of the thyroid gland, uncertain significance, appearance suggests likely not based upon acute trauma, but rather chronic. This can be seen in prolonged intubation, intubation injury, prior tracheostomy, and with tracheomalacia. 4. No evidence of vascular injury or hematoma. Soft tissues are grossly unremarkable. 5. Maxillary sinus disease left greater than right, with air-fluid levels. Findings could represent acute sinusitis in the appropriate clinical setting. 6. Mediastinal and hilar lymphadenopathy, uncertain significance or etiology. Sarcoidosis is a consideration, among other etiologies. 7. Mild mosaic attenuation the lung parenchyma, most likely mild air trapping. Differential includes constrictive (obliterative) bronchiolitis, hypersensitivity pneumonitis, as well as less commonly bronchial asthma, vasculitis, and chronic PE. 8. Mild cardiomegaly suspected. Heart is only partially imaged. 9. There is a ligature melinda in the neck soft tissues. Electronically signed by: Sergio Felix MD 12/11/2024 08:38 AM EST RP Chest X-Ray 12/11/24 09:45 IMPRESSION: No acute airspace disease. Electronically signed by: Donato Díaz MD 12/11/2024 10:06 AM EST RP Medications Medications Current Medications Acetaminophen (Acetaminophen 325 Mg Tablet) 650 mg PO Q6H PRN PRN Reason: Headache/Pain, Scale 1-10 Al Hydroxide/Mg Hydroxide (Magnesium Hydrox/Alum Hydrox 30 Ml Oral.Susp) 30 ml PO Q6H PRN PRN Reason: Heartburn/Nausea Escitalopram Oxalate (Escitalopram Oxalate 5 Mg Tablet) 5 mg PO DAILY JASMINA Last Admin: 12/17/24 08:33 Dose: 5 mg Hydroxyzine HCl (Hydroxyzine Hcl 25 Mg Tablet) 25 mg PO Q6H PRN PRN Reason: mild anxiety Last Admin: 12/16/24 20:29 Dose: 25 mg Magnesium Hydroxide (Milk Of Magnesia 30 Ml Oral.Susp) 30 ml PO DAILY PRN PRN Reason: Constipation Nicotine Polacrilex (Nicotine Polacrilex 2 Mg Gum) 4 mg BUCCAL Q2H PRN PRN Reason: Nicotine Cravings Olanzapine (Olanzapine 5 Mg Tablet) 5 mg PO Q4H PRN PRN Reason: agitation Trazodone HCl (Trazodone Hcl 50 Mg Tablet) 50 mg PO BEDTIME MRX1 PRN PRN Reason: Insomnia Last Admin: 12/16/24 20:29 Dose: 50 mg Allergies Allergies Allergy/AdvReac Type Severity Reaction Status Date / Time egg [EGG] Allergy Unknown ITCHY Verified 12/11/24 01:54 THROAT/VOMITING nickel [NICKEL] Allergy Unknown UNKNOWN Verified 12/11/24 01:54 Assessment & Plan Assessment & Plan (1) Depression: Status: Acute Code(s): F32.A - Depression, unspecified (2) Strangulation or suffocation by means, undetermined whether accidentally or purposely inflicted: Status: Acute Code(s): T71.194A - Asphyxiation due to mechanical threat to breathing due to other causes, undetermined, initial encounter (3) Seasonal affective disorder: Status: Acute Code(s): F33.8 - Other recurrent depressive disorders Plan Admit, CV, 15 minute checks Collateral Contact-pt will decide-he believes he will involve his mother, not his father. Diagnostics as needed Encourage milieu involvement [facility] referral for consult Pt is agreeable to medication trial, will begin Lexapro 5 mg a.m. Discharge planning. Pt would like help with finding a PCP who focuses on ENT/Respiratory due to his history,OP therapy and psychiatry He wants to learn how to focus on himself, good health and how to prevent sx like this from recurring. 12/16: continue current tx plan. 12/17: continue current plan/regime Reason for continued inpatient stay Substantial Risk for: rapid decompensation Time Spent With Patient Time: Total time managing care of this patient today ____ minutes.
[2024-12-17 20:00] VITALS: BP 137/70; PULSE 85; TEMP 36.9; O2SAT 97
[2024-12-17] MEDS: hydrOXYzine HCL 25 MG TABLET PO (20:19)
[2024-12-17] MEDS: traZODone HCL 50 MG TABLET PO (20:19)
[2024-12-18 08:24] VITALS: BP 132/67; PULSE 100; RESP 16; TEMP 37.1; O2SAT 94
[2024-12-18] MEDS: Escitalopram Oxalate 5 MG TABLET PO (09:26)
--- NOTE | 2024-12-18 15:45 | HO.PSYCHPN ---
Subjective Subjective Date of Service: 12/18/24 Reason For Visit: Depression Subjective Notes: Conditional Voluntary Healthcare Proxy: No Guardianship: No Medical Problems Affecting Mental Status: No Interim History: Pt is seen in the milieu today. He is active and participating in the program. Working with the team on strengthening coping skills. Tolerating Escitalopram. Will plan to increase his dose to 10 mg on 12/19/24. Medication Compliance: Yes Side effects from medications: No Attending Groups: Yes Review of Systems Acute medical concerns: No Medical Review of Systems: unchanged Review of Systems Review of Systems denies Mental Status Exam Mental Status Exam Patient Appearance: Appropriate Patient Orientation: Person, Place, Time and Situation Level of Consciousness: Awake and Alert Patient Behavior: Appropriate, Cooperative and Good Eye Contact Mood Description: Calm Affect Description: Calm Ability to Follow Directions: Good Speech Pattern: Clear and Appropriate Memory Description: Intact Hallucinations: None Delusions: Not Present Thought Process: Intact Thought Content: positive for Intact Diagnostics Vital Signs (24Hr): Vital Signs - 24 hr 12/17/24 20:00 12/18/24 08:24 Temperature 98.5 F 98.7 F Pulse Rate 85 100 Respiratory Rate 16 Blood Pressure 137/70 132/67 Pulse Oximetry 97 94 Oxygen Delivery Method Room Air Room Air BMI result Body Mass Index 30.6 Labs 12/11/24 02:06 12/11/24 02:06 Imaging Radiology Impressions: ITS Impressions Soft Tissue Neck CT 12/11/24 03:50 IMPRESSION: 1. No definite fracture of the laryngeal cartilages, or bony fracture. 2. There are findings highly suggestive of right vocal cord paralysis or paresis. Correlation with prior history recommended. Direct visualization also recommended. 3. Mild narrowing of the subglottic trachea, at the level of the thyroid gland, uncertain significance, appearance suggests likely not based upon acute trauma, but rather chronic. This can be seen in prolonged intubation, intubation injury, prior tracheostomy, and with tracheomalacia. 4. No evidence of vascular injury or hematoma. Soft tissues are grossly unremarkable. 5. Maxillary sinus disease left greater than right, with air-fluid levels. Findings could represent acute sinusitis in the appropriate clinical setting. 6. Mediastinal and hilar lymphadenopathy, uncertain significance or etiology. Sarcoidosis is a consideration, among other etiologies. 7. Mild mosaic attenuation the lung parenchyma, most likely mild air trapping. Differential includes constrictive (obliterative) bronchiolitis, hypersensitivity pneumonitis, as well as less commonly bronchial asthma, vasculitis, and chronic PE. 8. Mild cardiomegaly suspected. Heart is only partially imaged. 9. There is a ligature melinda in the neck soft tissues. Electronically signed by: Sergio Felix MD 12/11/2024 08:38 AM EST RP Chest X-Ray 12/11/24 09:45 IMPRESSION: No acute airspace disease. Electronically signed by: Donato Díaz MD 12/11/2024 10:06 AM EST RP Medications Medications Current Medications Acetaminophen (Acetaminophen 325 Mg Tablet) 650 mg PO Q6H PRN PRN Reason: Headache/Pain, Scale 1-10 Al Hydroxide/Mg Hydroxide (Magnesium Hydrox/Alum Hydrox 30 Ml Oral.Susp) 30 ml PO Q6H PRN PRN Reason: Heartburn/Nausea Escitalopram Oxalate (Escitalopram Oxalate 5 Mg Tablet) 5 mg PO DAILY JASMINA Last Admin: 12/18/24 09:26 Dose: 5 mg Hydroxyzine HCl (Hydroxyzine Hcl 25 Mg Tablet) 25 mg PO Q6H PRN PRN Reason: mild anxiety Last Admin: 12/17/24 20:19 Dose: 25 mg Magnesium Hydroxide (Milk Of Magnesia 30 Ml Oral.Susp) 30 ml PO DAILY PRN PRN Reason: Constipation Nicotine Polacrilex (Nicotine Polacrilex 2 Mg Gum) 4 mg BUCCAL Q2H PRN PRN Reason: Nicotine Cravings Olanzapine (Olanzapine 5 Mg Tablet) 5 mg PO Q4H PRN PRN Reason: agitation Trazodone HCl (Trazodone Hcl 50 Mg Tablet) 50 mg PO BEDTIME MRX1 PRN PRN Reason: Insomnia Last Admin: 12/17/24 20:19 Dose: 50 mg Allergies Allergies Allergy/AdvReac Type Severity Reaction Status Date / Time egg [EGG] Allergy Unknown ITCHY Verified 12/11/24 01:54 THROAT/VOMITING nickel [NICKEL] Allergy Unknown UNKNOWN Verified 12/11/24 01:54 Assessment & Plan Assessment & Plan (1) Depression: Status: Acute Code(s): F32.A - Depression, unspecified (2) Strangulation or suffocation by means, undetermined whether accidentally or purposely inflicted: Status: Acute Code(s): T71.194A - Asphyxiation due to mechanical threat to breathing due to other causes, undetermined, initial encounter (3) Seasonal affective disorder: Status: Acute Code(s): F33.8 - Other recurrent depressive disorders Plan Admit, CV, 15 minute checks Collateral Contact-pt will decide-he believes he will involve his mother, not his father. Diagnostics as needed Encourage milieu involvement [facility] referral for consult Pt is agreeable to medication trial, will begin Lexapro 5 mg a.m. Discharge planning. Pt would like help with finding a PCP who focuses on ENT/Respiratory due to his history,OP therapy and psychiatry He wants to learn how to focus on himself, good health and how to prevent sx like this from recurring. 12/16: continue current tx plan. 12/17: continue current plan/regime 12/18/24: Increase Escitalopram to 10 mg on 12/19/24. Reason for continued inpatient stay Substantial Risk for: rapid decompensation Time Spent With Patient Time: Total time managing care of this patient today ____ minutes.
[2024-12-18 20:00] VITALS: BP 126/62; PULSE 108; RESP 16; TEMP 38; O2SAT 100
[2024-12-18 20:36] VITALS: TEMP 38.2
[2024-12-18] MEDS: Acetaminophen 325 MG TABLET 650 MG PO (20:45)
[2024-12-18] MEDS: traZODone HCL 50 MG TABLET PO (20:45)
[2024-12-19 08:00] VITALS: BP 108/64; PULSE 98; RESP 16; TEMP 36.6; O2SAT 99
[2024-12-19] MEDS: Escitalopram Oxalate 10 MG TABLET PO (08:45)
--- NOTE | 2024-12-19 09:07 | HO.PSYCHPN ---
Subjective Subjective Date of Service: 12/19/24 Reason For Visit: Depression Subjective Notes: Conditional Voluntary Interim History: Patient was seen and discussed in rounds today. Records and plans were reviewed. He has been stable and is doing well. Participating in the milieu. Pleasant and social. Denies any side effects to Lexapro which was increased today to 10 mg. Eating and sleeping adequately. He may have some symptoms of flu and had a temperature of 100.7 degrees. No SI. No changes were made today Review of Systems Review of Systems Some flu symptoms Yes all other systems are reviewed and are negative Mental Status Exam Mental Status Exam Narrative: In today's visit he is alert, oriented and pleasant. Normal speech. Good eye contact. Affect is appropriate and constricted. No signs of psychosis. No AVH. No SI. No gross cognitive deficits. Judgment is intact. Moves all limbs. No gait abnormalities Diagnostics Vital Signs (24Hr): Vital Signs - 24 hr 12/18/24 20:00 12/18/24 20:36 12/19/24 08:00 Temperature 100.4 F 100.7 F H 97.8 F Pulse Rate 108 H 98 Respiratory Rate 16 16 Blood Pressure 126/62 108/64 Pulse Oximetry 100 99 Oxygen Delivery Method Room Air Room Air BMI result Body Mass Index 30.6 Labs 12/11/24 02:06 12/11/24 02:06 Imaging Radiology Impressions: ITS Impressions Soft Tissue Neck CT 12/11/24 03:50 IMPRESSION: 1. No definite fracture of the laryngeal cartilages, or bony fracture. 2. There are findings highly suggestive of right vocal cord paralysis or paresis. Correlation with prior history recommended. Direct visualization also recommended. 3. Mild narrowing of the subglottic trachea, at the level of the thyroid gland, uncertain significance, appearance suggests likely not based upon acute trauma, but rather chronic. This can be seen in prolonged intubation, intubation injury, prior tracheostomy, and with tracheomalacia. 4. No evidence of vascular injury or hematoma. Soft tissues are grossly unremarkable. 5. Maxillary sinus disease left greater than right, with air-fluid levels. Findings could represent acute sinusitis in the appropriate clinical setting. 6. Mediastinal and hilar lymphadenopathy, uncertain significance or etiology. Sarcoidosis is a consideration, among other etiologies. 7. Mild mosaic attenuation the lung parenchyma, most likely mild air trapping. Differential includes constrictive (obliterative) bronchiolitis, hypersensitivity pneumonitis, as well as less commonly bronchial asthma, vasculitis, and chronic PE. 8. Mild cardiomegaly suspected. Heart is only partially imaged. 9. There is a ligature melinda in the neck soft tissues. Electronically signed by: Sergio Felix MD 12/11/2024 08:38 AM EST RP Chest X-Ray 12/11/24 09:45 IMPRESSION: No acute airspace disease. Electronically signed by: Donato Díaz MD 12/11/2024 10:06 AM EST RP Medications Medications Current Medications Acetaminophen (Acetaminophen 325 Mg Tablet) 650 mg PO Q6H PRN PRN Reason: Headache/Pain, Scale 1-10 Last Admin: 12/18/24 20:45 Dose: 650 mg Al Hydroxide/Mg Hydroxide (Magnesium Hydrox/Alum Hydrox 30 Ml Oral.Susp) 30 ml PO Q6H PRN PRN Reason: Heartburn/Nausea Escitalopram Oxalate (Escitalopram Oxalate 10 Mg Tablet) 10 mg PO DAILY JASMINA Last Admin: 12/19/24 08:45 Dose: 10 mg Hydroxyzine HCl (Hydroxyzine Hcl 25 Mg Tablet) 25 mg PO Q6H PRN PRN Reason: mild anxiety Last Admin: 12/17/24 20:19 Dose: 25 mg Magnesium Hydroxide (Milk Of Magnesia 30 Ml Oral.Susp) 30 ml PO DAILY PRN PRN Reason: Constipation Nicotine Polacrilex (Nicotine Polacrilex 2 Mg Gum) 4 mg BUCCAL Q2H PRN PRN Reason: Nicotine Cravings Olanzapine (Olanzapine 5 Mg Tablet) 5 mg PO Q4H PRN PRN Reason: agitation Trazodone HCl (Trazodone Hcl 50 Mg Tablet) 50 mg PO BEDTIME MRX1 PRN PRN Reason: Insomnia Last Admin: 12/18/24 20:45 Dose: 50 mg Allergies Allergies Allergy/AdvReac Type Severity Reaction Status Date / Time egg [EGG] Allergy Unknown ITCHY Verified 12/11/24 01:54 THROAT/VOMITING nickel [NICKEL] Allergy Unknown UNKNOWN Verified 12/11/24 01:54 Assessment & Plan Assessment & Plan (1) Depression: Status: Acute Code(s): F32.A - Depression, unspecified (2) Strangulation or suffocation by means, undetermined whether accidentally or purposely inflicted: Status: Acute Code(s): T71.194A - Asphyxiation due to mechanical threat to breathing due to other causes, undetermined, initial encounter (3) Seasonal affective disorder: Status: Acute Code(s): F33.8 - Other recurrent depressive disorders Plan Admit, CV, 15 minute checks Collateral Contact-pt will decide-he believes he will involve his mother, not his father. Diagnostics as needed Encourage milieu involvement [facility] referral for consult Pt is agreeable to medication trial, will begin Lexapro 5 mg a.m. Discharge planning. Pt would like help with finding a PCP who focuses on ENT/Respiratory due to his history,OP therapy and psychiatry He wants to learn how to focus on himself, good health and how to prevent sx like this from recurring. 12/16: continue current tx plan. 12/17: continue current plan/regime 12/18/24: Increase Escitalopram to 10 mg on 12/19/24. 12/19/24: Continue current plans and regimen Reason for continued inpatient stay Substantial Risk for: med/psych decompensation Time Spent With Patient Time: Total time managing care of this patient today ____ minutes.
[2024-12-19 09:49] LABS: Influenza A PCR POSITIVE (Negative); Influenza B PCR NEGATIVE (Negative); Resp Syncy Virus RNA Qual PCR NEGATIVE (Negative); SARS COV2 PCR INHOUSE NEGATIVE (Negative)
[2024-12-19 19:46] VITALS: BP 133/65; PULSE 104; RESP 16; TEMP 37.8; O2SAT 98
[2024-12-19] MEDS: traZODone HCL 50 MG TABLET PO (20:26)
[2024-12-19] MEDS: hydrOXYzine HCL 25 MG TABLET PO (20:26)
[2024-12-19] MEDS: Acetaminophen 325 MG TABLET 650 MG PO (20:26)
[2024-12-20 08:00] VITALS: BP 111/72; PULSE 98; TEMP 37.7; O2SAT 98
[2024-12-20] MEDS: Escitalopram Oxalate 10 MG TABLET PO (08:26)
[2024-12-20] MEDS: Acetaminophen 325 MG TABLET 650 MG PO (08:35)
--- NOTE | 2024-12-20 08:42 | HO.PSYCHPN ---
Subjective Subjective Date of Service: 12/20/24 Reason For Visit: Depression Subjective Notes: Conditional Voluntary Interim History: Patient was seen and discussed in rounds today. Records and plans were reviewed. He now is having flu symptoms and some comfort meds were ordered. Slept adequately. Eating adequately. No SI. No behavioral issues. No changes were made today other than the additions for his flu symptoms Review of Systems Review of Systems Upper respiratory symptoms Yes all other systems are reviewed and are negative Mental Status Exam Mental Status Exam Narrative: In today's visit he is alert, oriented and pleasant. Normal speech. Good eye contact. Affect is appropriate and constricted. No signs of psychosis. No AVH. No SI. No gross cognitive deficits. Judgment is intact. Moves all limbs. No gait abnormalities Diagnostics Vital Signs (24Hr): Vital Signs - 24 hr 12/19/24 08:00 12/19/24 19:46 12/20/24 08:00 Temperature 97.8 F 100.0 F 100 F Pulse Rate 98 104 H 98 Respiratory Rate 16 16 Blood Pressure 108/64 133/65 111/72 Pulse Oximetry 99 98 98 Oxygen Delivery Method Room Air Room Air Room Air BMI result Body Mass Index 30.6 Labs 12/11/24 02:06 12/11/24 02:06 Labs: Laboratory Results - last 48 hr 12/19/24 09:03 Influenza Type A (PCR) POSITIVE A Influenza Type B (PCR) NEGATIVE RSV RNA Qual (PCR) NEGATIVE SARS-CoV-2 RNA (RT-PCR) NEGATIVE Imaging Radiology Impressions: ITS Impressions Soft Tissue Neck CT 12/11/24 03:50 IMPRESSION: 1. No definite fracture of the laryngeal cartilages, or bony fracture. 2. There are findings highly suggestive of right vocal cord paralysis or paresis. Correlation with prior history recommended. Direct visualization also recommended. 3. Mild narrowing of the subglottic trachea, at the level of the thyroid gland, uncertain significance, appearance suggests likely not based upon acute trauma, but rather chronic. This can be seen in prolonged intubation, intubation injury, prior tracheostomy, and with tracheomalacia. 4. No evidence of vascular injury or hematoma. Soft tissues are grossly unremarkable. 5. Maxillary sinus disease left greater than right, with air-fluid levels. Findings could represent acute sinusitis in the appropriate clinical setting. 6. Mediastinal and hilar lymphadenopathy, uncertain significance or etiology. Sarcoidosis is a consideration, among other etiologies. 7. Mild mosaic attenuation the lung parenchyma, most likely mild air trapping. Differential includes constrictive (obliterative) bronchiolitis, hypersensitivity pneumonitis, as well as less commonly bronchial asthma, vasculitis, and chronic PE. 8. Mild cardiomegaly suspected. Heart is only partially imaged. 9. There is a ligature melinda in the neck soft tissues. Electronically signed by: Sergio Felix MD 12/11/2024 08:38 AM EST RP Chest X-Ray 12/11/24 09:45 IMPRESSION: No acute airspace disease. Electronically signed by: Donato Díaz MD 12/11/2024 10:06 AM EST RP Medications Medications Current Medications Acetaminophen (Acetaminophen 325 Mg Tablet) 650 mg PO Q6H PRN PRN Reason: Headache/Pain, Scale 1-10 Last Admin: 12/20/24 08:35 Dose: 650 mg Al Hydroxide/Mg Hydroxide (Magnesium Hydrox/Alum Hydrox 30 Ml Oral.Susp) 30 ml PO Q6H PRN PRN Reason: Heartburn/Nausea Benzocaine (Throat Lozenge, Medicated Lozenge) 1 lozenge MUCOUS MEM Q2H PRN PRN Reason: Sore Throat Escitalopram Oxalate (Escitalopram Oxalate 10 Mg Tablet) 10 mg PO DAILY JASMINA Last Admin: 12/20/24 08:26 Dose: 10 mg Guaifenesin/Dextromethorphan (Guaifenesin Dm 600/30 1 Tab Tab.Er.12h) 1 tab PO BID PRN PRN Reason: Cough Hydroxyzine HCl (Hydroxyzine Hcl 25 Mg Tablet) 25 mg PO Q6H PRN PRN Reason: mild anxiety Last Admin: 12/19/24 20:26 Dose: 25 mg Magnesium Hydroxide (Milk Of Magnesia 30 Ml Oral.Susp) 30 ml PO DAILY PRN PRN Reason: Constipation Nicotine Polacrilex (Nicotine Polacrilex 2 Mg Gum) 4 mg BUCCAL Q2H PRN PRN Reason: Nicotine Cravings Olanzapine (Olanzapine 5 Mg Tablet) 5 mg PO Q4H PRN PRN Reason: agitation Trazodone HCl (Trazodone Hcl 50 Mg Tablet) 50 mg PO BEDTIME MRX1 PRN PRN Reason: Insomnia Last Admin: 12/19/24 20:26 Dose: 50 mg Allergies Allergies Allergy/AdvReac Type Severity Reaction Status Date / Time egg [EGG] Allergy Unknown ITCHY Verified 12/11/24 01:54 THROAT/VOMITING nickel [NICKEL] Allergy Unknown UNKNOWN Verified 12/11/24 01:54 Assessment & Plan Assessment & Plan (1) Depression: Status: Acute Code(s): F32.A - Depression, unspecified (2) Strangulation or suffocation by means, undetermined whether accidentally or purposely inflicted: Status: Acute Code(s): T71.194A - Asphyxiation due to mechanical threat to breathing due to other causes, undetermined, initial encounter (3) Seasonal affective disorder: Status: Acute Code(s): F33.8 - Other recurrent depressive disorders Plan Admit, CV, 15 minute checks Collateral Contact-pt will decide-he believes he will involve his mother, not his father. Diagnostics as needed Encourage milieu involvement [facility] referral for consult Pt is agreeable to medication trial, will begin Lexapro 5 mg a.m. Discharge planning. Pt would like help with finding a PCP who focuses on ENT/Respiratory due to his history,OP therapy and psychiatry He wants to learn how to focus on himself, good health and how to prevent sx like this from recurring. 12/16: continue current tx plan. 12/17: continue current plan/regime 12/18/24: Increase Escitalopram to 10 mg on 12/19/24. 12/19/24: Continue current plans and regimen 12/20: Continue current regimen and plans Reason for continued inpatient stay Substantial Risk for: med/psych decompensation Time Spent With Patient Time: Total time managing care of this patient today ____ minutes.
[2024-12-20] MEDS: guaiFENesin DM 600/30 1 TAB TAB.ER.12H PO ×2 (09:04→20:13)
[2024-12-20] MEDS: Throat Lozenge, Medicated LOZENGE 1 LOZENGE MUCOUS MEM ×2 (09:05→20:13)
[2024-12-20 19:40] VITALS: BP 121/76; PULSE 90; RESP 16; TEMP 36.3; O2SAT 96
[2024-12-21 08:00] VITALS: BP 115/57; PULSE 83; TEMP 37.1; O2SAT 95
[2024-12-21] MEDS: guaiFENesin DM 600/30 1 TAB TAB.ER.12H PO (08:24)
[2024-12-21] MEDS: Escitalopram Oxalate 10 MG TABLET PO (08:24)
[2024-12-21] MEDS: Throat Lozenge, Medicated LOZENGE 1 LOZENGE MUCOUS MEM (08:24)
--- NOTE | 2024-12-21 11:04 | HO.PSYCHPN ---
Subjective Subjective Date of Service: 12/21/24 Reason For Visit: Depression Subjective Notes: Conditional Voluntary Healthcare Proxy: No Guardianship: No Medical Problems Affecting Mental Status: No Interim History: Pt reports his mood is improved. He denies SI,HI. He is attending groups He did test positive for flu and is having symptoms. He does have interest in attending PHP post discharge. He discussed discharge planning and would like to consider leaving this week. Medication Compliance: Yes Side effects from medications: No Attending Groups: Yes Review of Systems Acute medical concerns: No Medical Review of Systems: unchanged Review of Systems Review of Systems flu sx Mental Status Exam Mental Status Exam Patient Appearance: Fatigued and Appropriate Patient Orientation: Person, Place, Time and Situation Level of Consciousness: Alert Patient Behavior: Talkative and Good Eye Contact Mood Description: Appropriate Affect Description: Flat Patient Cognition Impaired: No Ability to Follow Directions: Good Speech Pattern: Spontaneous Speech Memory Description: Intact Hallucinations: None Thought Process: Intact and Goal Oriented Thought Content: positive for Intact and positive for Goal Oriented Depressive Symptoms: Thoughts of /Suicide (denies) Judgement: Fair Diagnostics Vital Signs (24Hr): Vital Signs - 24 hr 12/20/24 19:40 12/21/24 08:00 Temperature 97.4 F 98.7 F Pulse Rate 90 83 Respiratory Rate 16 Blood Pressure 121/76 115/57 L Pulse Oximetry 96 95 Oxygen Delivery Method Room Air Room Air BMI result Body Mass Index 30.6 Labs 12/11/24 02:06 12/11/24 02:06 Imaging Radiology Impressions: ITS Impressions Soft Tissue Neck CT 12/11/24 03:50 IMPRESSION: 1. No definite fracture of the laryngeal cartilages, or bony fracture. 2. There are findings highly suggestive of right vocal cord paralysis or paresis. Correlation with prior history recommended. Direct visualization also recommended. 3. Mild narrowing of the subglottic trachea, at the level of the thyroid gland, uncertain significance, appearance suggests likely not based upon acute trauma, but rather chronic. This can be seen in prolonged intubation, intubation injury, prior tracheostomy, and with tracheomalacia. 4. No evidence of vascular injury or hematoma. Soft tissues are grossly unremarkable. 5. Maxillary sinus disease left greater than right, with air-fluid levels. Findings could represent acute sinusitis in the appropriate clinical setting. 6. Mediastinal and hilar lymphadenopathy, uncertain significance or etiology. Sarcoidosis is a consideration, among other etiologies. 7. Mild mosaic attenuation the lung parenchyma, most likely mild air trapping. Differential includes constrictive (obliterative) bronchiolitis, hypersensitivity pneumonitis, as well as less commonly bronchial asthma, vasculitis, and chronic PE. 8. Mild cardiomegaly suspected. Heart is only partially imaged. 9. There is a ligature melinda in the neck soft tissues. Electronically signed by: Sergio Felix MD 12/11/2024 08:38 AM EST RP Chest X-Ray 12/11/24 09:45 IMPRESSION: No acute airspace disease. Electronically signed by: Donato Díaz MD 12/11/2024 10:06 AM EST RP Medications Medications Current Medications Acetaminophen (Acetaminophen 325 Mg Tablet) 650 mg PO Q6H PRN PRN Reason: Headache/Pain, Scale 1-10 Last Admin: 12/20/24 08:35 Dose: 650 mg Al Hydroxide/Mg Hydroxide (Magnesium Hydrox/Alum Hydrox 30 Ml Oral.Susp) 30 ml PO Q6H PRN PRN Reason: Heartburn/Nausea Benzocaine (Throat Lozenge, Medicated Lozenge) 1 lozenge MUCOUS MEM Q2H PRN PRN Reason: Sore Throat Last Admin: 12/21/24 08:24 Dose: 1 lozenge Escitalopram Oxalate (Escitalopram Oxalate 10 Mg Tablet) 10 mg PO DAILY JASMINA Last Admin: 12/21/24 08:24 Dose: 10 mg Guaifenesin/Dextromethorphan (Guaifenesin Dm 600/30 1 Tab Tab.Er.12h) 1 tab PO BID PRN PRN Reason: Cough Last Admin: 12/21/24 08:24 Dose: 1 tab Hydroxyzine HCl (Hydroxyzine Hcl 25 Mg Tablet) 25 mg PO Q6H PRN PRN Reason: mild anxiety Last Admin: 12/19/24 20:26 Dose: 25 mg Loperamide HCl (Loperamide Hcl 2 Mg Capsule) 4 mg PO Q6H PRN PRN Reason: Diarrhea Magnesium Hydroxide (Milk Of Magnesia 30 Ml Oral.Susp) 30 ml PO DAILY PRN PRN Reason: Constipation Nicotine Polacrilex (Nicotine Polacrilex 2 Mg Gum) 4 mg BUCCAL Q2H PRN PRN Reason: Nicotine Cravings Olanzapine (Olanzapine 5 Mg Tablet) 5 mg PO Q4H PRN PRN Reason: agitation Ondansetron HCl (Ondansetron Odt 4 Mg Tab.Rapdis) 4 mg TRANSLINGU Q6H PRN PRN Reason: Nausea and Vomiting Trazodone HCl (Trazodone Hcl 50 Mg Tablet) 50 mg PO BEDTIME MRX1 PRN PRN Reason: Insomnia Last Admin: 12/19/24 20:26 Dose: 50 mg Allergies Allergies Allergy/AdvReac Type Severity Reaction Status Date / Time egg [EGG] Allergy Unknown ITCHY Verified 12/11/24 01:54 THROAT/VOMITING nickel [NICKEL] Allergy Unknown UNKNOWN Verified 12/11/24 01:54 Assessment & Plan Assessment & Plan (1) Depression: Status: Acute Code(s): F32.A - Depression, unspecified (2) Strangulation or suffocation by means, undetermined whether accidentally or purposely inflicted: Status: Acute Code(s): T71.194A - Asphyxiation due to mechanical threat to breathing due to other causes, undetermined, initial encounter (3) Seasonal affective disorder: Status: Acute Code(s): F33.8 - Other recurrent depressive disorders Plan Admit, CV, 15 minute checks Collateral Contact-pt will decide-he believes he will involve his mother, not his father. Diagnostics as needed Encourage milieu involvement [facility] referral for consult Pt is agreeable to medication trial, will begin Lexapro 5 mg a.m. Discharge planning. Pt would like help with finding a PCP who focuses on ENT/Respiratory due to his history,OP therapy and psychiatry He wants to learn how to focus on himself, good health and how to prevent sx like this from recurring. 12/16: continue current tx plan. 12/17: continue current plan/regime 12/18/24: Increase Escitalopram to 10 mg on 12/19/24. 12/19/24: Continue current plans and regimen 12/20: Continue current regimen and plans 12/21: Continue current regime and care plan Pt continues to report he finds groups helpful in developing coping skills. Reason for continued inpatient stay Substantial Risk for: rapid decompensation Time Spent With Patient Time: Total time managing care of this patient today ____ minutes.
[2024-12-21] MEDS: Milk of Magnesia 30 ML ORAL.SUSP PO (15:49)
[2024-12-21] MEDS: Ondansetron ODT 4 MG TAB.RAPDIS TRANSLINGU (17:18)
[2024-12-21 20:00] VITALS: BP 118/64; PULSE 89; RESP 16; TEMP 36.8; O2SAT 95
[2024-12-22 08:00] VITALS: BP 124/64; PULSE 79; TEMP 36.7; O2SAT 98
[2024-12-22] MEDS: Escitalopram Oxalate 10 MG TABLET PO (08:45)
--- NOTE | 2024-12-22 09:52 | HO.PSYCHPN ---
Subjective Subjective Date of Service: 12/22/24 Reason For Visit: Depression Subjective Notes: Conditional Voluntary Healthcare Proxy: No Guardianship: No Medical Problems Affecting Mental Status: No Interim History: Pt reports constipation, however, tells team he has also had diarrhea. Discussed getting a KUB to rule out SBO. He agrees. States he is feeling better with flu sx (except GI sx-feeling constipated) Taking notes in group to improve coping and to remember ideas given by others in regards to my communication . Medication Compliance: Yes Side effects from medications: No Attending Groups: Yes Review of Systems Acute medical concerns: Yes constipation reported pt also with diarrhea Medical Review of Systems: changed Review of Systems Review of Systems constipation/diarrhea reports a decrease in flu sx. Mental Status Exam Mental Status Exam Patient Appearance: Fatigued and Appropriate Patient Orientation: Person, Place, Time and Situation Level of Consciousness: Alert Patient Behavior: Talkative and Good Eye Contact Mood Description: Appropriate Affect Description: Flat Patient Cognition Impaired: No Ability to Follow Directions: Good Speech Pattern: Spontaneous Speech Memory Description: Intact Hallucinations: None Thought Process: Intact and Goal Oriented Thought Content: positive for Intact and positive for Goal Oriented Depressive Symptoms: Thoughts of /Suicide (denies) Judgement: Fair Diagnostics Vital Signs (24Hr): Vital Signs - 24 hr 12/21/24 20:00 12/22/24 08:00 Temperature 98.2 F 98.1 F Pulse Rate 89 79 Respiratory Rate 16 Blood Pressure 118/64 124/64 Pulse Oximetry 95 98 Oxygen Delivery Method Room Air Room Air BMI result Body Mass Index 30.6 Labs 12/11/24 02:06 12/11/24 02:06 Imaging Radiology Impressions: ITS Impressions Soft Tissue Neck CT 12/11/24 03:50 IMPRESSION: 1. No definite fracture of the laryngeal cartilages, or bony fracture. 2. There are findings highly suggestive of right vocal cord paralysis or paresis. Correlation with prior history recommended. Direct visualization also recommended. 3. Mild narrowing of the subglottic trachea, at the level of the thyroid gland, uncertain significance, appearance suggests likely not based upon acute trauma, but rather chronic. This can be seen in prolonged intubation, intubation injury, prior tracheostomy, and with tracheomalacia. 4. No evidence of vascular injury or hematoma. Soft tissues are grossly unremarkable. 5. Maxillary sinus disease left greater than right, with air-fluid levels. Findings could represent acute sinusitis in the appropriate clinical setting. 6. Mediastinal and hilar lymphadenopathy, uncertain significance or etiology. Sarcoidosis is a consideration, among other etiologies. 7. Mild mosaic attenuation the lung parenchyma, most likely mild air trapping. Differential includes constrictive (obliterative) bronchiolitis, hypersensitivity pneumonitis, as well as less commonly bronchial asthma, vasculitis, and chronic PE. 8. Mild cardiomegaly suspected. Heart is only partially imaged. 9. There is a ligature melinda in the neck soft tissues. Electronically signed by: Sergio Felix MD 12/11/2024 08:38 AM EST RP Chest X-Ray 12/11/24 09:45 IMPRESSION: No acute airspace disease. Electronically signed by: Donato Díaz MD 12/11/2024 10:06 AM EST RP Medications Medications Current Medications Acetaminophen (Acetaminophen 325 Mg Tablet) 650 mg PO Q6H PRN PRN Reason: Headache/Pain, Scale 1-10 Last Admin: 12/20/24 08:35 Dose: 650 mg Al Hydroxide/Mg Hydroxide (Magnesium Hydrox/Alum Hydrox 30 Ml Oral.Susp) 30 ml PO Q6H PRN PRN Reason: Heartburn/Nausea Benzocaine (Throat Lozenge, Medicated Lozenge) 1 lozenge MUCOUS MEM Q2H PRN PRN Reason: Sore Throat Last Admin: 12/21/24 08:24 Dose: 1 lozenge Escitalopram Oxalate (Escitalopram Oxalate 10 Mg Tablet) 10 mg PO DAILY JASMINA Last Admin: 12/22/24 08:45 Dose: 10 mg Guaifenesin/Dextromethorphan (Guaifenesin Dm 600/30 1 Tab Tab.Er.12h) 1 tab PO BID PRN PRN Reason: Cough Last Admin: 12/21/24 08:24 Dose: 1 tab Hydroxyzine HCl (Hydroxyzine Hcl 25 Mg Tablet) 25 mg PO Q6H PRN PRN Reason: mild anxiety Last Admin: 12/19/24 20:26 Dose: 25 mg Loperamide HCl (Loperamide Hcl 2 Mg Capsule) 4 mg PO Q6H PRN PRN Reason: Diarrhea Magnesium Hydroxide (Milk Of Magnesia 30 Ml Oral.Susp) 30 ml PO DAILY PRN PRN Reason: Constipation Last Admin: 12/21/24 15:49 Dose: 30 ml Nicotine Polacrilex (Nicotine Polacrilex 2 Mg Gum) 4 mg BUCCAL Q2H PRN PRN Reason: Nicotine Cravings Olanzapine (Olanzapine 5 Mg Tablet) 5 mg PO Q4H PRN PRN Reason: agitation Ondansetron HCl (Ondansetron Odt 4 Mg Tab.Rapdis) 4 mg TRANSLINGU Q6H PRN PRN Reason: Nausea and Vomiting Last Admin: 12/21/24 17:18 Dose: 4 mg Trazodone HCl (Trazodone Hcl 50 Mg Tablet) 50 mg PO BEDTIME MRX1 PRN PRN Reason: Insomnia Last Admin: 12/19/24 20:26 Dose: 50 mg Allergies Allergies Allergy/AdvReac Type Severity Reaction Status Date / Time egg [EGG] Allergy Unknown ITCHY Verified 12/11/24 01:54 THROAT/VOMITING nickel [NICKEL] Allergy Unknown UNKNOWN Verified 12/11/24 01:54 Assessment & Plan Assessment & Plan (1) Depression: Status: Acute Code(s): F32.A - Depression, unspecified (2) Strangulation or suffocation by means, undetermined whether accidentally or purposely inflicted: Status: Acute Code(s): T71.194A - Asphyxiation due to mechanical threat to breathing due to other causes, undetermined, initial encounter (3) Seasonal affective disorder: Status: Acute Code(s): F33.8 - Other recurrent depressive disorders Plan Admit, CV, 15 minute checks Collateral Contact-pt will decide-he believes he will involve his mother, not his father. Diagnostics as needed Encourage milieu involvement [facility] referral for consult Pt is agreeable to medication trial, will begin Lexapro 5 mg a.m. Discharge planning. Pt would like help with finding a PCP who focuses on ENT/Respiratory due to his history,OP therapy and psychiatry He wants to learn how to focus on himself, good health and how to prevent sx like this from recurring. 12/16: continue current tx plan. 12/17: continue current plan/regime 12/18/24: Increase Escitalopram to 10 mg on 12/19/24. 12/19/24: Continue current plans and regimen 12/20: Continue current regimen and plans 12/22/24: KUB Continue current regime Reason for continued inpatient stay Substantial Risk for: rapid decompensation and med/psych decompensation Time Spent With Patient Time: Total time managing care of this patient today ____ minutes.
[2024-12-22] MEDS: Milk of Magnesia 30 ML ORAL.SUSP PO (11:30)
[2024-12-22] MEDS: Simethicone 80 MG TAB.CHEW PO (14:29)
[2024-12-22 20:00] VITALS: BP 118/80; PULSE 84; TEMP 36.8; O2SAT 98
--- NOTE | 2024-12-22 20:22 | HO.PM.IMCN ---
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 Per the patient, he has had generalized abdominal pain with gas and bloating ongoing for 3 days. He states last normal bowel movement was 4 days ago. He has not been able to have a full bowel movements since and has been given milk of magnesia with small amounts watery yellow colored diarrhea with mucus. He also endorses nausea and vomiting with food intake, last episode was this morning and he has not eaten since. Emesis is nonbloody. He denies fevers, chills, large volume diarrhea, hematemesis, hematochezia, urinary issues. In addition, he is also positive for influenza A 12/19. He has not had hematology or chemistry studies performed since 12/11 but no significant abnormalities noted. Vital signs have been stable. KUB this afternoon showed possible ileus versus small-bowel obstruction with minimally dilated loops of small bowel in the left midabdomen. No significant stool burden. Review of Systems Review of Systems: Yes all other systems are reviewed and are negative [facility] Medical History Seasonal affective disorder Social History Household Members: None Housing: Apartment Do you presently have visiting nurse or other home services: No Patient Tobacco Use Status: Current everyday Tobacco user Tobacco use type: Cigarette and Smokeless Tobacco Cigarettes Per Day: 2 Smoked in Last 30 Days: Yes e-Cigarette/Vaping Use: Never Used Patient Interested in Nicotine Replacement: No Patient Given Instructions on How to Stop Smoking: No Second Hand Smoke Exposure: No Use of substances other than those prescribed or required for medical reasons: No Currently Displaying Signs/Symptoms of Drug Intoxication Withdrawal: No Any prior treatment program specific to substance use: No Have you been hit, kicked, punched, or otherwise hurt by someone within the past year? If so, by whom?: No Do you feel safe in your current relationship?: No Current Relationship Is there a partner from a previous relationship who is making you feel unsafe now?: No Are you made to feel afraid or neglected: No Spiritual Healthcare Practices: None Anabaptism Healthcare Practices: None Cultural Healthcare Practices: None Advance Directives: No Advance Directives Information Provided: Yes Do you have thoughts of harming others: None Do you have a plan to hurt others: No Plan Recently lost weight without trying: No Eating poorly because of decreased appetite: No Nutrition Risks: No Nutritional Risk Poor oral hygiene: No service: No Sexual orientation: Straight/Heterosexual Meds Allergies Allergy/AdvReac Type Severity Reaction Status Date / Time egg [EGG] Allergy Unknown ITCHY Verified 12/11/24 01:54 THROAT/VOMITING nickel [NICKEL] Allergy Unknown UNKNOWN Verified 12/11/24 01:54 Active Medications: Current Medications Acetaminophen (Acetaminophen 325 Mg Tablet) 650 mg PO Q6H PRN PRN Reason: Headache/Pain, Scale 1-10 Last Admin: 12/20/24 08:35 Dose: 650 mg Al Hydroxide/Mg Hydroxide (Magnesium Hydrox/Alum Hydrox 30 Ml Oral.Susp) 30 ml PO Q6H PRN PRN Reason: Heartburn/Nausea Benzocaine (Throat Lozenge, Medicated Lozenge) 1 lozenge MUCOUS MEM Q2H PRN PRN Reason: Sore Throat Last Admin: 12/21/24 08:24 Dose: 1 lozenge Escitalopram Oxalate (Escitalopram Oxalate 10 Mg Tablet) 10 mg PO DAILY JASMINA Last Admin: 12/22/24 08:45 Dose: 10 mg Guaifenesin/Dextromethorphan (Guaifenesin Dm 600/30 1 Tab Tab.Er.12h) 1 tab PO BID PRN PRN Reason: Cough Last Admin: 12/21/24 08:24 Dose: 1 tab Hydroxyzine HCl (Hydroxyzine Hcl 25 Mg Tablet) 25 mg PO Q6H PRN PRN Reason: mild anxiety Last Admin: 12/19/24 20:26 Dose: 25 mg Loperamide HCl (Loperamide Hcl 2 Mg Capsule) 4 mg PO Q6H PRN PRN Reason: Diarrhea Magnesium Hydroxide (Milk Of Magnesia 30 Ml Oral.Susp) 30 ml PO DAILY PRN PRN Reason: Constipation Last Admin: 12/22/24 11:30 Dose: 30 ml Nicotine Polacrilex (Nicotine Polacrilex 2 Mg Gum) 4 mg BUCCAL Q2H PRN PRN Reason: Nicotine Cravings Olanzapine (Olanzapine 5 Mg Tablet) 5 mg PO Q4H PRN PRN Reason: agitation Ondansetron HCl (Ondansetron Odt 4 Mg Tab.Rapdis) 4 mg TRANSLINGU Q6H PRN PRN Reason: Nausea and Vomiting Last Admin: 12/21/24 17:18 Dose: 4 mg Simethicone (Simethicone 80 Mg Tab.Chew) 80 mg PO QIDWMHS PRN PRN Reason: gas relief Last Admin: 12/22/24 14:29 Dose: 80 mg Trazodone HCl (Trazodone Hcl 50 Mg Tablet) 50 mg PO BEDTIME MRX1 PRN PRN Reason: Insomnia Last Admin: 12/19/24 20:26 Dose: 50 mg Home Medications ?Medication ?Instructions ?Recorded ?Confirmed ?Last Taken ?Type No Known Home Meds 12/11/24 12/11/24 Unknown History Physical Exam Vital Signs and Narrative: Vital Signs: Last Vital Signs Temp 98.3 F 12/22/24 20:00 Pulse 84 12/22/24 20:00 Resp 16 12/21/24 20:00 BP 118/80 12/22/24 20:00 Pulse Ox 98 12/22/24 20:00 O2 Del Method Room Air 12/22/24 20:00 BMI result Body Mass Index 30.6 Constitutional - Awake and Alert, No apparent distress Eyes - PERRLA, EOMI Cardiovascular - S1S2, RRR, No edema Respiratory - Normal lung expansion, Normal respiratory effort, No respiratory distress, CTA bilaterally Gastrointestinal - softly distended with diffuse ttp greated in LLQ without any guarding or rebound. ND; +BS Extremities - no calf tenderness bilaterally, no swelling Skin - Warm/Dry Neurological - Alert & oriented x3 Psychological - Appropriate affect Results Labs 12/11/24 02:06 12/11/24 02:06 Imaging Radiologist's Impressions: Impressions KUB X-Ray 12/22/24 15:42 IMPRESSION: 1. Findings which may suggest ileus or small bowel obstruction. 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 #Abd pain w/ nausea/vomiting -KUB shows possible ileus vs obstruction. Would favor dx of ileus over obstruction. No significant stool burden -Given LLQ ttp and symptoms, will further characterize with CT abd/pelvis -Keep NPO for now, antiemetics prn -Please contact hospitalist service with ct results and will consider surgery consult and possible transfer -Check cbc, bmp, liver panel, and lipase #Bipolar disorder -plan per psychiatry -will likely need sitter if transfer is indicated pending results Will continue following for results
[2024-12-23 08:00] VITALS: BP 117/63; PULSE 75; RESP 18; TEMP 36.6; O2SAT 95
[2024-12-23 08:07] LABS: MANUAL DIFF FLAG NO
[2024-12-23 08:15] LABS: Basophils Percent Auto 0.4 % (0-2); Eosinophils Absolute Auto 0.2 X10*3/uL (0.0-0.4); Eosinophils Percent Auto 2.5 % (0-4); Hematocrit 51.1 % (42.0-52.0); Hemoglobin 18.1 g/dl (14.0-18.0); Imm Gran Abs Auto 0.04 X10*3/uL (0.00-0.03); Imm Gran Pct Auto 0.5 % (0.0-0.4); Lymphocytes Absolute Auto 2.5 X10*3/uL (1.2-4.9); Lymphocytes Percent Auto 30.9 % (20-40); Mean Corpuscular HGB Conc 35.4 g/dl (31.0-36.0); Mean Corpuscular Hemoglobin 30.8 pg (27.0-33.0); Mean Corpuscular Volume 87.1 fL (80.0-98.0); Mean Platelet Volume 11.6 fL (9.4-12.4); Monocytes Absolute Auto 0.6 X10*3/uL (0.1-1.2); Neutrophils Absolute Auto 4.6 x10*3/uL (2.0-8.3); Neutrophils Percent Auto 57.7 % (45-73); Platelet Count 186 X10*3/uL (160-400); Red Blood Count 5.87 X10*6/uL (4.60-5.80); Red Cell Distribution Width 12.2 % (11.0-16.0)
[2024-12-23] MEDS: Escitalopram Oxalate 10 MG TABLET PO (08:22)
[2024-12-23] MEDS: bisacodyL 10 MG SUPP.RECT PR (08:22)
[2024-12-23 08:33] LABS: Alanine Aminotransferase 29 U/L (0-40); Albumin Level 4.4 g/dL (3.5-5.0); Alkaline Phosphatase 63 U/L (39-117); Anion Gap 14 (12-20); Aspartate Amino Transferase 26 U/L (5-37); Bilirubin Direct 0.4 mg/dL (0.0-0.5); Bilirubin Total 0.9 mg/dL (0.0-1.0); Blood Urea Nitrogen 19 mg/dL (9-16); Calcium 8.7 mg/dL (8.4-10.2); Carbon Dioxide 29 mmol/L (22-29); Chloride 100 mmol/L (96-108); Creatinine Clr Calc Pharmacy 112.3; Estimated Glomerular Filt Rate > 60; Glucose Random 95 mg/dL (60-115); Lipase 12 U/L (8-78); Potassium 3.6 mmol/L (3.3-5.1); Sodium 139 mmol/L (135-145); Total Protein 7.9 g/dL (6.5-8.0)
--- NOTE | 2024-12-23 09:59 | P.PNPSI_ITS ---
Subjective Subjective Date of Service: 12/23/24 Reason For Visit: Depression Subjective Notes: Conditional Voluntary Healthcare Proxy: No Guardianship: No Medical Problems Affecting Mental Status: No Interim History: Pt placed on clear liquid diet by hospitalist team for ?SBO. CAT is negative. Pt taking Bentyl, having stool studies. Discussed feeling well emotionally, however current GI issues have been anxiety provoking. Will postpone discharge until pt is feeling more certain about this course of treatment. He continues to attend groups, interact well with his peers and remains engaged in the milieu overall. Medication Compliance: Yes Side effects from medications: No Attending Groups: Yes Review of Systems Constipation Review of Systems Review of Systems Constipation Mental Status Exam Mental Status Exam Patient Appearance: Appropriate Patient Orientation: Person, Place, Time and Situation Level of Consciousness: Alert Patient Behavior: Talkative and Good Eye Contact Mood Description: Appropriate and Fearful Affect Description: Fearful and Flat Patient Cognition Impaired: No Ability to Follow Directions: Good Speech Pattern: Spontaneous Speech Memory Description: Intact Hallucinations: None Thought Process: Intact and Goal Oriented Thought Content: positive for Intact and positive for Goal Oriented Depressive Symptoms: Increased Anxiety and Thoughts of /Suicide (denies) Judgement: Good Diagnostics Vital Signs (24Hr): Vital Signs - 24 hr 12/22/24 20:00 12/23/24 08:00 Temperature 98.3 F 98 F Pulse Rate 84 75 Respiratory Rate 18 Blood Pressure 118/80 117/63 Pulse Oximetry 98 95 Oxygen Delivery Method Room Air Room Air BMI result Body Mass Index 30.6 Labs 12/23/24 07:33 12/23/24 07:33 Labs: Laboratory Results - last 48 hr 12/23/24 07:33 WBC 8.0 RBC 5.87 H Hgb 18.1 H Hct 51.1 MCV 87.1 MCH 30.8 MCHC 35.4 RDW 12.2 Plt Count 186 MPV 11.6 Immature Gran % (Auto) 0.5 H Neut % (Auto) 57.7 Lymph % (Auto) 30.9 [place] % (Auto) 8.0 Eos % (Auto) 2.5 Baso % (Auto) 0.4 Lymph # (Auto) 2.5 [place] # (Auto) 0.6 Eos # (Auto) 0.2 Baso # (Auto) 0.0 Abs Immat Gran (auto) 0.04 H Absolute Neuts (auto) 4.6 Absolute Nucleated RBC 0.000 Nucleated RBC % (auto) 0.0 Sodium 139 Potassium 3.6 Chloride 100 Carbon Dioxide 29 Anion Gap 14 BUN 19 H Creatinine 0.98 Estim Creat Clear Calc 112.3 Estimated GFR > 60 Random Glucose 95 Calcium 8.7 Total Bilirubin 0.9 Direct Bilirubin 0.4 AST 26 ALT 29 Alkaline Phosphatase 63 Total Protein 7.9 Albumin 4.4 Lipase 12 Imaging Radiology Impressions: ITS Impressions Soft Tissue Neck CT 12/11/24 03:50 IMPRESSION: 1. No definite fracture of the laryngeal cartilages, or bony fracture. 2. There are findings highly suggestive of right vocal cord paralysis or paresis. Correlation with prior history recommended. Direct visualization also recommended. 3. Mild narrowing of the subglottic trachea, at the level of the thyroid gland, uncertain significance, appearance suggests likely not based upon acute trauma, but rather chronic. This can be seen in prolonged intubation, intubation injury, prior tracheostomy, and with tracheomalacia. 4. No evidence of vascular injury or hematoma. Soft tissues are grossly unremarkable. 5. Maxillary sinus disease left greater than right, with air-fluid levels. Findings could represent acute sinusitis in the appropriate clinical setting. 6. Mediastinal and hilar lymphadenopathy, uncertain significance or etiology. Sarcoidosis is a consideration, among other etiologies. 7. Mild mosaic attenuation the lung parenchyma, most likely mild air trapping. Differential includes constrictive (obliterative) bronchiolitis, hypersensitivity pneumonitis, as well as less commonly bronchial asthma, vasculitis, and chronic PE. 8. Mild cardiomegaly suspected. Heart is only partially imaged. 9. There is a ligature melinda in the neck soft tissues. Electronically signed by: Sergio Felix MD 12/11/2024 08:38 AM EST RP Chest X-Ray 12/11/24 09:45 IMPRESSION: No acute airspace disease. Electronically signed by: Donato Díaz MD 12/11/2024 10:06 AM EST RP KUB X-Ray 12/22/24 15:42 IMPRESSION: 1. Findings which may suggest ileus or small bowel obstruction. Electronically signed by: Sergio Felix MD 12/22/2024 04:58 PM EDT RP Medications Medications Current Medications Acetaminophen (Acetaminophen 325 Mg Tablet) 650 mg PO Q6H PRN PRN Reason: Headache/Pain, Scale 1-10 Last Admin: 12/20/24 08:35 Dose: 650 mg Al Hydroxide/Mg Hydroxide (Magnesium Hydrox/Alum Hydrox 30 Ml Oral.Susp) 30 ml PO Q6H PRN PRN Reason: Heartburn/Nausea Benzocaine (Throat Lozenge, Medicated Lozenge) 1 lozenge MUCOUS MEM Q2H PRN PRN Reason: Sore Throat Last Admin: 12/21/24 08:24 Dose: 1 lozenge Dicyclomine HCl (Dicyclomine Hcl 10 Mg Capsule) 10 mg PO TIDAC JASMINA Escitalopram Oxalate (Escitalopram Oxalate 10 Mg Tablet) 10 mg PO DAILY JASMINA Last Admin: 12/23/24 08:22 Dose: 10 mg Guaifenesin/Dextromethorphan (Guaifenesin Dm 600/30 1 Tab Tab.Er.12h) 1 tab PO BID PRN PRN Reason: Cough Last Admin: 12/21/24 08:24 Dose: 1 tab Hydroxyzine HCl (Hydroxyzine Hcl 25 Mg Tablet) 25 mg PO Q6H PRN PRN Reason: mild anxiety Last Admin: 12/19/24 20:26 Dose: 25 mg Loperamide HCl (Loperamide Hcl 2 Mg Capsule) 4 mg PO Q6H PRN PRN Reason: Diarrhea Magnesium Hydroxide (Milk Of Magnesia 30 Ml Oral.Susp) 30 ml PO DAILY PRN PRN Reason: Constipation Last Admin: 12/22/24 11:30 Dose: 30 ml Nicotine Polacrilex (Nicotine Polacrilex 2 Mg Gum) 4 mg BUCCAL Q2H PRN PRN Reason: Nicotine Cravings Olanzapine (Olanzapine 5 Mg Tablet) 5 mg PO Q4H PRN PRN Reason: agitation Ondansetron HCl (Ondansetron Odt 4 Mg Tab.Rapdis) 4 mg TRANSLINGU Q6H PRN PRN Reason: Nausea and Vomiting Last Admin: 12/21/24 17:18 Dose: 4 mg Simethicone (Simethicone 80 Mg Tab.Chew) 80 mg PO QIDWMHS PRN PRN Reason: gas relief Last Admin: 12/22/24 14:29 Dose: 80 mg Trazodone HCl (Trazodone Hcl 50 Mg Tablet) 50 mg PO BEDTIME MRX1 PRN PRN Reason: Insomnia Last Admin: 12/19/24 20:26 Dose: 50 mg Allergies Allergies Allergy/AdvReac Type Severity Reaction Status Date / Time egg [EGG] Allergy Unknown ITCHY Verified 12/11/24 01:54 THROAT/VOMITING nickel [NICKEL] Allergy Unknown UNKNOWN Verified 12/11/24 01:54 Assessment & Plan Assessment & Plan (1) Depression: Status: Acute Code(s): F32.A - Depression, unspecified (2) Seasonal affective disorder: Status: Acute Code(s): F33.8 - Other recurrent depressive disorders Plan 29-year-old year old male with 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 #Abd pain w/ nausea/vomiting -KUB shows possible ileus vs obstruction. Would favor dx of ileus over obstruction. No significant stool burden -Given LLQ ttp and symptoms, will further characterize with CT abd/pelvis -Keep NPO for now, antiemetics prn -Please contact hospitalist service with ct results and will consider surgery consult and possible transfer -Check cbc, bmp, liver panel, and lipase #Bipolar disorder -plan per psychiatry -will likely need sitter if transfer is indicated pending results Will continue following for results 12/23: Continue tx Reason for continued inpatient stay Substantial Risk for: rapid decompensation and med/psych decompensation Time Spent With Patient Time: Total time managing care of this patient today ____ minutes.
[2024-12-23] MEDS: Dicyclomine HCl 10 MG CAPSULE PO ×2 (11:39→16:33)
[2024-12-23 19:50] VITALS: BP 119/76; PULSE 86; RESP 16; TEMP 37.1; O2SAT 97
[2024-12-24 08:00] VITALS: BP 124/74; PULSE 71; RESP 20; TEMP 36.7; O2SAT 95
[2024-12-24] MEDS: Escitalopram Oxalate 10 MG TABLET PO (09:16)
[2024-12-24] MEDS: Dicyclomine HCl 10 MG CAPSULE PO ×3 (09:16→16:01)
[2024-12-24] MEDS: Milk of Magnesia 30 ML ORAL.SUSP PO (09:17)
[2024-12-24 09:27] LABS: Adenovirus F 40/41 Not Detected (Not Detect.); Astrovirus Not Detected (Not Detect.); Campylobacter Not Detected (Not Detect.); Cryptosporidium Not Detected (Not Detect.); Cyclospora cayetanensis Not Detected (Not Detect.); E. coli EAEC Not Detected (Not Detect.); E. coli EPEC Not Detected (Not Detect.); E. coli ETEC Not Detected (Not Detect.); E. coli STEC Not Detected (Not Detect.); Entamoeba histolytica Not Detected (Not Detect.); Giardia lamblia Not Detected (Not Detect.); Norovirus GI/GII Not Detected (Not Detect.); Plesiomonas shigelloides Not Detected (Not Detect.); Rotavirus A Not Detected (Not Detect.); Salmonella Not Detected (Not Detect.); Sapovirus Not Detected (Not Detect.); Shigella sp./EIEC Not Detected (Not Detect.); Vibrio Not Detected (Not Detect.); Vibrio Cholerae Not Detected (Not Detect.); Yersinia enterocolitica Not Detected (Not Detect.)
--- NOTE | 2024-12-24 10:18 | P.PNPSI_ITS ---
Subjective Subjective Date of Service: 12/24/24 Reason For Visit: Depression Subjective Notes: Conditional Voluntary Healthcare Proxy: No Guardianship: No Medical Problems Affecting Mental Status: No Interim History: Feeling improved. Bowel sx resolving. Pt returned to solid foods. Asks for discharge 12/25 which we will plan. Pt denies SI,HI, AH,VH Feeling prepared to return to his home/work. Medication Compliance: Yes Side effects from medications: No Attending Groups: Yes Review of Systems constipation is resolving Mental Status Exam Mental Status Exam Patient Appearance: Appropriate Patient Orientation: Person, Place, Time and Situation Level of Consciousness: Alert Patient Behavior: Talkative and Good Eye Contact Mood Description: Appropriate Affect Description: Flat Patient Cognition Impaired: No Ability to Follow Directions: Good Speech Pattern: Spontaneous Speech Memory Description: Intact Hallucinations: None Thought Process: Intact and Goal Oriented Thought Content: positive for Intact and positive for Goal Oriented Depressive Symptoms: Increased Anxiety and Thoughts of /Suicide (denies) Judgement: Good Diagnostics Vital Signs (24Hr): Vital Signs - 24 hr 12/23/24 19:50 12/24/24 08:00 Temperature 98.7 F 98.0 F Pulse Rate 86 71 Respiratory Rate 16 20 Blood Pressure 119/76 124/74 Pulse Oximetry 97 95 Oxygen Delivery Method Room Air Room Air BMI result Body Mass Index 30.6 Labs 12/23/24 07:33 12/23/24 07:33 Labs: Laboratory Results - last 48 hr 12/23/24 12/23/24 07:33 16:41 WBC 8.0 RBC 5.87 H Hgb 18.1 H Hct 51.1 MCV 87.1 MCH 30.8 MCHC 35.4 RDW 12.2 Plt Count 186 MPV 11.6 Immature Gran % (Auto) 0.5 H Neut % (Auto) 57.7 Lymph % (Auto) 30.9 [place] % (Auto) 8.0 Eos % (Auto) 2.5 Baso % (Auto) 0.4 Lymph # (Auto) 2.5 [place] # (Auto) 0.6 Eos # (Auto) 0.2 Baso # (Auto) 0.0 Abs Immat Gran (auto) 0.04 H Absolute Neuts (auto) 4.6 Absolute Nucleated RBC 0.000 Nucleated RBC % (auto) 0.0 Sodium 139 Potassium 3.6 Chloride 100 Carbon Dioxide 29 Anion Gap 14 BUN 19 H Creatinine 0.98 Estim Creat Clear Calc 112.3 Estimated GFR > 60 Random Glucose 95 Calcium 8.7 Total Bilirubin 0.9 Direct Bilirubin 0.4 AST 26 ALT 29 Alkaline Phosphatase 63 Total Protein 7.9 Albumin 4.4 Lipase 12 Stl C. cayetanensis PCR Not Detected Stool Rotavirus A PCR Not Detected Stl Adenov F 40/41 PCR Not Detected Stool Astrovirus (PCR) Not Detected Stool Campylobacter PCR Not Detected Stool Cryptosporidium PCR Not Detected Stl Sh Tox Pr E STEC PCR Not Detected Stool E coli O157 PCR Not applicable Stl Enterotoxigenic E PCR Not Detected Stool EPEC (PCR) Not Detected Stool EAEC (PCR) Not Detected Stl E. histolytica PCR Not Detected Stool Giardia Lamblia PCR Not Detected Stl P. shigelloides PCR Not Detected Stool Salmonella PCR Not Detected Stool Sapovirus (PCR) Not Detected Stl Shigella/EIEC PCR Not Detected St Y.enterocolitica PCR Not Detected Stool Vibrio (PCR) Not Detected Stl Vibrio cholerae PCR Not Detected Stl Norovirus GI/GII PCR Not Detected Imaging Radiology Impressions: ITS Impressions Soft Tissue Neck CT 12/11/24 03:50 IMPRESSION: 1. No definite fracture of the laryngeal cartilages, or bony fracture. 2. There are findings highly suggestive of right vocal cord paralysis or paresis. Correlation with prior history recommended. Direct visualization also recommended. 3. Mild narrowing of the subglottic trachea, at the level of the thyroid gland, uncertain significance, appearance suggests likely not based upon acute trauma, but rather chronic. This can be seen in prolonged intubation, intubation injury, prior tracheostomy, and with tracheomalacia. 4. No evidence of vascular injury or hematoma. Soft tissues are grossly unremarkable. 5. Maxillary sinus disease left greater than right, with air-fluid levels. Findings could represent acute sinusitis in the appropriate clinical setting. 6. Mediastinal and hilar lymphadenopathy, uncertain significance or etiology. Sarcoidosis is a consideration, among other etiologies. 7. Mild mosaic attenuation the lung parenchyma, most likely mild air trapping. Differential includes constrictive (obliterative) bronchiolitis, hypersensitivity pneumonitis, as well as less commonly bronchial asthma, vasculitis, and chronic PE. 8. Mild cardiomegaly suspected. Heart is only partially imaged. 9. There is a ligature melinda in the neck soft tissues. Electronically signed by: Sergio Felix MD 12/11/2024 08:38 AM EST RP Chest X-Ray 12/11/24 09:45 IMPRESSION: No acute airspace disease. Electronically signed by: Donato Díaz MD 12/11/2024 10:06 AM EST RP KUB X-Ray 12/22/24 15:42 IMPRESSION: 1. Findings which may suggest ileus or small bowel obstruction. Electronically signed by: Sergio Felix MD 12/22/2024 04:58 PM EDT RP Medications Medications Current Medications Acetaminophen (Acetaminophen 325 Mg Tablet) 650 mg PO Q6H PRN PRN Reason: Headache/Pain, Scale 1-10 Last Admin: 12/20/24 08:35 Dose: 650 mg Al Hydroxide/Mg Hydroxide (Magnesium Hydrox/Alum Hydrox 30 Ml Oral.Susp) 30 ml PO Q6H PRN PRN Reason: Heartburn/Nausea Benzocaine (Throat Lozenge, Medicated Lozenge) 1 lozenge MUCOUS MEM Q2H PRN PRN Reason: Sore Throat Last Admin: 12/21/24 08:24 Dose: 1 lozenge Dicyclomine HCl (Dicyclomine Hcl 10 Mg Capsule) 10 mg PO TIDAC JASMINA Last Admin: 12/24/24 09:16 Dose: 10 mg Escitalopram Oxalate (Escitalopram Oxalate 10 Mg Tablet) 10 mg PO DAILY JASMINA Last Admin: 12/24/24 09:16 Dose: 10 mg Guaifenesin/Dextromethorphan (Guaifenesin Dm 600/30 1 Tab Tab.Er.12h) 1 tab PO BID PRN PRN Reason: Cough Last Admin: 12/21/24 08:24 Dose: 1 tab Hydroxyzine HCl (Hydroxyzine Hcl 25 Mg Tablet) 25 mg PO Q6H PRN PRN Reason: mild anxiety Last Admin: 12/19/24 20:26 Dose: 25 mg Loperamide HCl (Loperamide Hcl 2 Mg Capsule) 4 mg PO Q6H PRN PRN Reason: Diarrhea Magnesium Hydroxide (Milk Of Magnesia 30 Ml Oral.Susp) 30 ml PO DAILY PRN PRN Reason: Constipation Last Admin: 12/24/24 09:17 Dose: 30 ml Nicotine Polacrilex (Nicotine Polacrilex 2 Mg Gum) 4 mg BUCCAL Q2H PRN PRN Reason: Nicotine Cravings Olanzapine (Olanzapine 5 Mg Tablet) 5 mg PO Q4H PRN PRN Reason: agitation Ondansetron HCl (Ondansetron Odt 4 Mg Tab.Rapdis) 4 mg TRANSLINGU Q6H PRN PRN Reason: Nausea and Vomiting Last Admin: 12/21/24 17:18 Dose: 4 mg Simethicone (Simethicone 80 Mg Tab.Chew) 80 mg PO QIDWMHS PRN PRN Reason: gas relief Last Admin: 12/22/24 14:29 Dose: 80 mg Trazodone HCl (Trazodone Hcl 50 Mg Tablet) 50 mg PO BEDTIME MRX1 PRN PRN Reason: Insomnia Last Admin: 12/19/24 20:26 Dose: 50 mg Allergies Allergies Allergy/AdvReac Type Severity Reaction Status Date / Time egg [EGG] Allergy Unknown ITCHY Verified 12/11/24 01:54 THROAT/VOMITING nickel [NICKEL] Allergy Unknown UNKNOWN Verified 12/11/24 01:54 Assessment & Plan Assessment & Plan (1) Depression: Status: Acute Code(s): F32.A - Depression, unspecified (2) Seasonal affective disorder: Status: Acute Code(s): F33.8 - Other recurrent depressive disorders Plan 29-year-old year old male with 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 #Abd pain w/ nausea/vomiting -KUB shows possible ileus vs obstruction. Would favor dx of ileus over obstruction. No significant stool burden -Given LLQ ttp and symptoms, will further characterize with CT abd/pelvis -Keep NPO for now, antiemetics prn -Please contact hospitalist service with ct results and will consider surgery consult and possible transfer -Check cbc, bmp, liver panel, and lipase #Bipolar disorder -plan per psychiatry -will likely need sitter if transfer is indicated pending results Will continue following for results 12/24/24: Discharge 12/25. Reason for continued inpatient stay Substantial Risk for: rapid decompensation and med/psych decompensation Time Spent With Patient Time: Total time managing care of this patient today ____ minutes.
[2024-12-24 20:00] VITALS: BP 123/71; PULSE 76; RESP 15; TEMP 37; O2SAT 97
--- NOTE | 2024-12-24 22:51 | CONS_ITS ---
DATE OF SERVICE: 12/24/2024 REFERRING PHYSICIAN: Shira York REASON FOR CONSULTATION: Bright red blood per rectum and abnormal CT scan. HISTORY OF PRESENT ILLNESS: Patient is a pleasant 29-year-old man who was admitted to the inpatient psychiatric unit on December 15 with depression and suicidal ideation. GI consultation is requested by Shira York because of abnormal CT imaging, nausea and vomiting, and difficulty with bowel movements. The patient has no prior history of GI problems, although he did have feeding tube placement and tracheostomy as a child because of laryngeal paralysis. During this admission, he developed nausea and vomiting. Of note, he did have a positive influenza test on admission. The vomiting and nausea have resolved and he has no complaints of abdominal pain. He reports not having a bowel movement for several days, but he was straining and did have a small amount of bright red blood and mucus. He denies any prior history of colon problems, colitis, or Crohn disease. Laboratory testing and imaging studies have been obtained and are reviewed. KUB was abnormal suggesting ileus or small bowel obstruction. Followup CT scanning obtained on 12/22 showed liquid stool throughout most of the colon, mild splenomegaly and cholelithiasis. Laboratory studies that are pertinent include a GI panel, which has been negative and a white count of 8.0. Hematocrit has remained stable. PAST MEDICAL HISTORY: 1. Depression. 2. Seasonal affective disorder. 3. History of suicide attempt/suicidal ideation. 4. Premature fusion of cranium, craniotomy. CURRENT MEDICATIONS: Current medication list is reviewed in the chart. ALLERGIES: THERE ARE NONE REPORTED TO MEDICATIONS. HE DOES HAVE ALLERGIES TO EGG AND NICKEL. FAMILY HISTORY: This is reviewed with the patient and is negative for chronic GI issues. SOCIAL HISTORY: There is no current tobacco use. He does use alcohol. He denies significant drug use. REVIEW OF SYSTEMS: SKIN: No pruritus. HEENT: Negative. CARDIOPULMONARY: No shortness of breath or chest pain. GASTROINTESTINAL: As above. GENITOURINARY: Negative. NEUROPSYCHIATRIC: Negative. PHYSICAL EXAMINATION: GENERAL: Shows a pleasant male, in no acute distress. VITAL SIGNS: Stable. SKIN: Anicteric. HEENT: Shows no scleral icterus. Facial mask is present. Scar from cranial surgery. NECK: Without lymphadenopathy. He has a well-healed tracheostomy scar. LUNGS: Clear. HEART: Shows a regular rate and rhythm. S1, S2. No murmur. ABDOMEN: Soft without focal masses. There is a healed incision from his previous G-tube and a left upper quadrant horizontal incision from surgery, which he underwent as a child that required craniotomy for a fused skull. EXTREMITIES: Without edema. LABORATORY DATA AND IMAGING STUDIES: Reviewed. IMPRESSION: 1. Abnormal CT scan. 2. Nausea and vomiting, resolved. It appears likely that the recent viral illness may have caused a component of ileus or gastroenteritis, which led to his nausea and vomiting. At this time, he has no complaints of nausea, vomiting, or abdominal pain. I would recommend advancing his diet as he has been tolerating a clear liquid diet. His bowels will likely return to normal shortly. He is taking dicyclomine for any component of abdominal cramping and this could be continued. I do not think he needs further evaluation of his rectal bleeding at this time, which was likely from straining and may be related to hemorrhoids. If this does continue, then colonoscopy could be considered. Thanks for asking me to see him. I will follow him in the hospital with you. MD ROS Griffin/CARMEN / [id number]
[2024-12-25 07:53] VITALS: BP 107/63; PULSE 71; RESP 16; TEMP 36.9; O2SAT 95
[2024-12-25] MEDS: Escitalopram Oxalate 10 MG TABLET PO (08:33)
[2024-12-25] MEDS: Dicyclomine HCl 10 MG CAPSULE PO (08:33)
--- NOTE | 2024-12-25 15:15 | PM.PSYDC ---
DS: Providers Provider Date of admission: 12/14/24 12:28 Primary care physician: Unknown Physician Consults: 12/22/24 19:36 Consult to Hospitalist Stat Comment: Consulting Provider: [facility] Hospitalists Reason For Exam: KUB- ileus or small bowel obstruction 12/23/24 15:41 Consult to Gastroenterology Routine Consulting Provider: Ronen Olivier Reason for consultation: BRBPR, fluid filled bowel but no diarrhea/bm's DS: Diagnosis Discharge Diagnosis (1) Depression: Status: Acute (2) Seasonal affective disorder: Status: Acute DS: Medications Discharge Medications Home Medications: Previous Rx's ?Medication ?Instructions ?Recorded dicyclomine 10 mg capsule 10 mg PO TIDAC #90 caps 12/25/24 escitalopram oxalate 10 mg tablet 10 mg PO DAILY #30 tabs 12/25/24 trazodone 50 mg tablet 50 mg PO BEDTIME MRX1 PRN Insomnia 12/25/24 #60 tabs Data Data Completed and Pending Completed studies during hospitalization [Text1]: 12/19/24 12/23/24 12/23/24 09:03 07:33 16:41 WBC 8.0 RBC 5.87 H Hgb 18.1 H Hct 51.1 MCV 87.1 MCH 30.8 MCHC 35.4 RDW 12.2 Plt Count 186 MPV 11.6 Immature Gran % (Auto) 0.5 H Neut % (Auto) 57.7 Lymph % (Auto) 30.9 [place] % (Auto) 8.0 Eos % (Auto) 2.5 Baso % (Auto) 0.4 Lymph # (Auto) 2.5 [place] # (Auto) 0.6 Eos # (Auto) 0.2 Baso # (Auto) 0.0 Abs Immat Gran (auto) 0.04 H Absolute Neuts (auto) 4.6 Absolute Nucleated RBC 0.000 Nucleated RBC % (auto) 0.0 Sodium 139 Potassium 3.6 Chloride 100 Carbon Dioxide 29 Anion Gap 14 BUN 19 H Creatinine 0.98 Estim Creat Clear Calc 112.3 Estimated GFR > 60 Random Glucose 95 Calcium 8.7 Total Bilirubin 0.9 Direct Bilirubin 0.4 AST 26 ALT 29 Alkaline Phosphatase 63 Total Protein 7.9 Albumin 4.4 Lipase 12 Stl C. cayetanensis PCR Not Detected Stool Rotavirus A PCR Not Detected Stl Adenov F 40/41 PCR Not Detected Stool Astrovirus (PCR) Not Detected Stool Campylobacter PCR Not Detected Stool Cryptosporidium PCR Not Detected Stl Sh Tox Pr E STEC PCR Not Detected Stool E coli O157 PCR Not applicable Stl Enterotoxigenic E PCR Not Detected Stool EPEC (PCR) Not Detected Stool EAEC (PCR) Not Detected Stl E. histolytica PCR Not Detected Stool Giardia Lamblia PCR Not Detected Stl P. shigelloides PCR Not Detected Stool Salmonella PCR Not Detected Stool Sapovirus (PCR) Not Detected Stl Shigella/EIEC PCR Not Detected St Y.enterocolitica PCR Not Detected Stool Vibrio (PCR) Not Detected Stl Vibrio cholerae PCR Not Detected Stl Norovirus GI/GII PCR Not Detected Influenza Type A (PCR) POSITIVE A Influenza Type B (PCR) NEGATIVE RSV RNA Qual (PCR) NEGATIVE SARS-CoV-2 RNA (RT-PCR) NEGATIVE Imaging Diagnostic Imaging Impressions Soft Tissue Neck CT 12/11/24 03:50 IMPRESSION: 1. No definite fracture of the laryngeal cartilages, or bony fracture. 2. There are findings highly suggestive of right vocal cord paralysis or paresis. Correlation with prior history recommended. Direct visualization also recommended. 3. Mild narrowing of the subglottic trachea, at the level of the thyroid gland, uncertain significance, appearance suggests likely not based upon acute trauma, but rather chronic. This can be seen in prolonged intubation, intubation injury, prior tracheostomy, and with tracheomalacia. 4. No evidence of vascular injury or hematoma. Soft tissues are grossly unremarkable. 5. Maxillary sinus disease left greater than right, with air-fluid levels. Findings could represent acute sinusitis in the appropriate clinical setting. 6. Mediastinal and hilar lymphadenopathy, uncertain significance or etiology. Sarcoidosis is a consideration, among other etiologies. 7. Mild mosaic attenuation the lung parenchyma, most likely mild air trapping. Differential includes constrictive (obliterative) bronchiolitis, hypersensitivity pneumonitis, as well as less commonly bronchial asthma, vasculitis, and chronic PE. 8. Mild cardiomegaly suspected. Heart is only partially imaged. 9. There is a ligature melinda in the neck soft tissues. Electronically signed by: Sergio Felix MD 12/11/2024 08:38 AM [facility] Chest X-Ray 12/11/24 09:45 IMPRESSION: No acute airspace disease. Electronically signed by: Donato Díaz MD 12/11/2024 10:06 AM EST RP KUB X-Ray 12/22/24 15:42 IMPRESSION: 1. Findings which may suggest ileus or small bowel obstruction. Electronically signed by: Sergio Felix MD 12/22/2024 04:58 PM EDT RP DS: Summary Time Spent with Patient Time attestation: Total time managing care of this patient today ____ minutes. Discharge Plan Discharge Anticipated Discharge Date/Time: 12/25/24 12:00 Patient Disposition: Home, Self-Care Discharge Diagnosis: Depression Seasonal Affective Disorder Referrals: [facility] Intake with Alexei [Other] - 12/29/24 10:00 am (In person.) [facility] Psychiatry with Sophie Khoury [Other] - 02/01/25 11:00 am (In person.) [facility] Partial Hospitalization Program [Other] - 12/25/24 11:00 am (This is your intake and Saturday you will begin the program.) Physician,Unknown J [Primary Care Provider] - 1 Week (Please secure PCP and schedule follow-up appt; preferably within 1 week. May call [facility] if looking for PCP [address] [phone]) Discharge Medications: New trazodone 50 mg Tablet 50 mg PO BEDTIME MRX1 PRN (Reason: Insomnia) Qty: 60 0RF dicyclomine 10 mg Capsule 10 mg PO TIDAC Qty: 90 0RF escitalopram oxalate 10 mg Tablet 10 mg PO DAILY Qty: 30 0RF Discharge Orders: Discharge Order (Routine); Ordered 12/25/24 Ordered By: Rosalba Erazo Diet: Advance to usual diet Activity on Discharge: As tolerated Stand Alone Forms: Patient Portal Discharge page, Community Support Print Language: Upper Sorbian Care Plan Goals: Mood and Behavioral Stabilization Health Concerns: Mood and Behavioral Stabilization Plan of Treatment: Attend scheduled appointments Take medications as directed Call/Return as needed Assessment: No SI,HI,AH,VH No sx of acute illness Pt agrees with plan of care Discharge Date/Time: 12/25/24 10:51
== END 2024-12-25 10:51 | disposition home or self-care (01) | DRG 885 ==
LOC: HO.ED 12-13 12:13 → HO.PM5 12-14 12:47
PROVIDERS: Emergency Medicine; Physician Assistant; Social Worker; Admitting Provider Clinical Nurse Specialist Psychiatric/Mental Health, Adult; Emergency Provider Emergency Medicine; Visit Provider Clinical Nurse Specialist Psychiatric/Mental Health, Adult
DX: F33.8 Other recurrent depressive disorders (principal); T71.164A Asphyxiation due to hanging, undetermined, initial encounter; R45.851 Suicidal ideations; J10.1 Influenza due to other identified influenza virus with other respiratory manifestations; K56.7 Ileus, unspecified; Z23 Encounter for immunization; Z87.891 Personal history of nicotine dependence; Z79.899 Other long term (current) drug therapy
CPT/HCPCS: 0241U; 36415; 70491; 71046; 74018; 74176; 80048; 80053; 80061; 80076; 80179; 80307; 81001; 82607; 82746; 83036; 83690; 83735; 84439; 84443; 85025; 87507; 90656; 99285; Q9967; S9485

== ENCOUNTER → 2024-12-11 02:32 | Outpatient (BNV) | payer OTHER, SELFPAY | PROVIDERS: Emergency Provider Emergency Medicine; Visit Provider Radiology Diagnostic Radiology | DX: J34.89 Other specified disorders of nose and nasal sinuses (principal); R59.0 Localized enlarged lymph nodes | CPT/HCPCS: 70491; 71046 ==

== ENCOUNTER 2024-12-14 12:28 | Outpatient (BNV) | payer OTHER, SELFPAY | END 2024-12-22 15:42 | PROVIDERS: Admitting Provider Clinical Nurse Specialist Psychiatric/Mental Health, Adult; Emergency Provider Emergency Medicine; Visit Provider Radiology Diagnostic Radiology | DX: R11.2 Nausea with vomiting, unspecified (principal); K59.00 Constipation, unspecified; R16.1 Splenomegaly, not elsewhere classified; K80.20 Calculus of gallbladder without cholecystitis without obstruction | CPT/HCPCS: 74018; 74176 ==

== ENCOUNTER → 2024-12-14 12:28 | Outpatient (BNV) | payer OTHER, SELFPAY | PROVIDERS: Admitting Provider Clinical Nurse Specialist Psychiatric/Mental Health, Adult; Emergency Provider Emergency Medicine; Visit Provider Clinical Nurse Specialist Psychiatric/Mental Health, Adult | DX: F33.2 Major depressive disorder, recurrent severe without psychotic features (principal); T71.194A Asphyxiation due to mechanical threat to breathing due to other causes, undetermined, initial encounter | CPT/HCPCS: 90792; 99231; 99232 ==

== ENCOUNTER → 2024-12-14 12:28 | Outpatient (BNV) | payer OTHER, SELFPAY | PROVIDERS: Admitting Provider Clinical Nurse Specialist Psychiatric/Mental Health, Adult; Emergency Provider Emergency Medicine; Visit Provider Physician Assistant | DX: Z02.2 Encounter for examination for admission to residential institution (principal) | CPT/HCPCS: 99429 ==

== ENCOUNTER → 2024-12-30 10:00 | Outpatient (BNV) | payer OTHER, SELFPAY | PROVIDERS: Visit Provider Psychiatry & Neurology Psychiatry | DX: F33.9 Major depressive disorder, recurrent, unspecified (principal); F10.10 Alcohol abuse, uncomplicated | CPT/HCPCS: 90792 ==

== ENCOUNTER 2025-01-12 09:45 | Outpatient (RCR) | payer OTHER, SELFPAY ==
[2024-12-28 13:40] VITALS: BMI 30.4
[2024-12-28 13:41] VITALS: BP 114/68; PULSE 80; TEMP 36.8
--- NOTE | 2024-12-28 22:42 | HO.PS.ADMBH ---
HPI Date of Service: 12/28/24 Chief Complaint: depsession Sources of Information: patient interviewed, chart reviewed and crisis/core team assessment reviewed HPI Narrative: Patient is an employed, single, 29 yo male who is being stepped down from [facility] at [facility] status post suicide attempt by hanging. Patient had tried to hang himself from a cord and initially blacked out but after realizing that initial attempt failed he was able to stop himself and get help from a friend who brought him to the ED. On admission patient was noted to have ligature uriarte and is noted to have a raspy voice. 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 He had an uneventful inpatient stay. He was started on Lexapro which was titrated to 10 mg over a week ago as well as trazodone for sleep. He has been tolerating medication there has been some improvement in mood and anxiety but continues to endorse ongoing symptoms. And notes he is particularly anxious in program today. Sleep has improved with trazodone he denies any further issues with suicidal ideation, hopelessness or thoughts of giving up on life no history of AH, VH manic or psychotic symptoms. He describes a history of seasonal affective disorder. Prior to this event he has had minimal mental health treatment aside from once being prescribed Wellbutrin for smoking cessation. He was agreeable with plan to hold off further titration and let him settle into the program before considering any further med changes. Past Psychiatric History: [facility] x1: 12/2024 at [facility] OP: Denies Trials: Wellbutrin for smoking cessation SA: Denies, SI at 15 with a relationship issue No hx of mio, psychosis, paranoia, delusions Developmental Hx: speech therapy through 4th grade due to dysphonia (h/o vocal cord paralysis) Psych provider: none (referred) Therapist: just met with new therapist PCP: none Previous trials: Wellbutrin CURRENT MEDICATIONS: escitalopram 10 mg qd trazodone 50-100 mg qhs dicyclomine 10 mg TID [facility] Medical History (Updated 12/29/24 @ 07:02 by Judy Alfaro MD) Feeding by G-tube Paralyzed vocal cords Seasonal affective disorder Narrative: h/o Childhood asthma Denies seizures Denies concussions/TBI Ht: 5'6 Wt: 188 lbs ALL: egg, nickel Surgical History (Updated 12/28/24 @ 13:39 by Erin Barragan RN) History of cranial surgery History of tracheostomy Family History: Father alcoholic Cousin schizophrenia maternal grandfather-[employer] vet, abusive, homeless, ?psychotic Mother with thyroid disease Social History: Not , no children Lives in apartment rented from his father Born in [place], raised in [place] Born with paralyzed vocal cords, requiring trach, tubes, cranial stenosis plate. Pt was in and out of hospital but has no memory of this. Worked with Dr. Bruce and Dr. Somers extensively at [facility]. Parents fought, . Mom is now in [place], Dad in [place]. Both do not know of pt's attempt, but dad is aware of admit. Pt is an only child. School was difficult yet not impossible. Grandparents helped him. In middle school it was harder and he did not have grandparents assistance and father tried to help him. Pt did attend college for political science and Panamanian studies. 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 He has no current relationship and no children. Substance History: History of occasional alcohol use. There was one period of heavy drinking that was limited to last summer (drinking a 30 pack a week) but by the fall he had cut back almost entirely to his baseline of 0 2 to units a bear a week. Denies any history of substance use aside from social cannabis use in high school Trauma History: Affirms Diagnostics Vital Signs (24Hr): Vital Signs - 24 hr 12/28/24 13:41 Temperature 98.2 F Pulse Rate 80 Blood Pressure 114/68 BMI result Body Mass Index 30.4 Meds/Allergies Allergies Allergies Allergy/AdvReac Type Severity Reaction Status Date / Time egg [EGG] Allergy Unknown ITCHY Verified 12/11/24 01:54 THROAT/VOMITING nickel [NICKEL] Allergy Unknown UNKNOWN Verified 12/11/24 01:54 Mental Status Exam Mental Status Exam Narrative: Alert, oriented, in no acute distress. Calm, cooperative, engaged, appears nervous. Oddly related but pleasant. Fully avoids eye contact. No psychomotor agitation or neurovegetative retardation. Eye contact maintained. Mood anxious, affect variable, mood congruent. Speech normal. Thought process linear, coherent. Thought content related to stressors, denies any hopelessness or SI. Denies any aggressive ideation or HI. No paranoia or delusional content elicited. No evidence of psychosis. Insight and judgment - fair but adequate. Assessment & Plan Assessment & Plan (1) MDD (major depressive disorder), recurrent episode: Status: Acute Code(s): F33.9 - Major depressive disorder, recurrent, unspecified (2) Alcohol abuse: Status: Acute Code(s): F10.10 - Alcohol abuse, uncomplicated Plan Admit to [facility] VS reviewed: afebrile, BP 114/68; 80 bpm continue other regular medications? Routine lab work ordered as indicated EKG, routine for baseline QTc for medication considerations as indicated UDS as indicated [facility] reviewed Continue to monitor as per protocol Patient educated on: diagnosis, medication risk/benefits and substance abuse Informed Consent: understands Reason for continued partial hosp. stay Substantial Risk for: inability to function and med/psych decompensation Certification I certify that partial hospital treatment is medically necessary due to the symptoms and problems resulting from the patient's mental illness and the failure to treat the patient at the partial hospital level of care would likely result in the patient requiring inpatient psychiatric care which could not be prevented at a less intensive level of care. Time Spent With Patient Time: Total time managing care of this patient today __90__ minutes.
--- NOTE | 2024-12-31 16:27 | HO.PHP ---
Client's case has been opened and reviewed in team.
--- NOTE | 2025-01-05 07:57 | HO.PHP ---
Rubén is not scheduled for program today due to have an intake appointment for therapy.
--- NOTE | 2025-01-07 07:45 | PC.NURSE ---
New PCP appointment with [facility] at [address] [place] [address], [address] [place], [place]. on July 07, 2025 at 1:00 pm. Office # [phone].
--- NOTE | 2025-01-08 12:59 | HO.PHPPROGNO ---
Subjective Subjective Date of Service: 01/08/25 Reason For Visit: depression Interim History: Patient seen for follow-up. ?I am doing good. Maybe it is the weather? He notices improvement in his mood, he is uncertain if it is attributed to the medication or the groups. He shares a history suggestive of seasonal affective disorder, in does wonder whether some of his improvements could also be contributed to seasonal changes in weather over the past week or 2. He says he has always been vulnerable to more depressive symptoms over the winter months and usually around this time of year it starts to let up. He is continued Lexapro 10 mg daily. He rates his depression severity at a 1/10 with 10 being the most severe. He denies any anxious feelings at this time and says in general anxiety has been good. He continues to use trazodone which has been helpful for sleep. He denies any other issues at this time does not need any refills. Medications have been well tolerated. He denies any helplessness hopelessness or SI since prior to admission to hospital. Medication Compliance: Yes Side effects from medications: No Attending Groups: Yes Review of Systems Acute medical concerns: No Mental Status Exam Mental Status Exam Narrative: Alert, oriented, in no acute distress. Calm, cooperative, engaged, appears nervous. Prominent scar across top of head. Pleasant. Eye contact. No psychomotor agitation or neurovegetative retardation. Eye contact maintained. Mood anxious, affect variable, brighter than expected, mood congruent. Speech normal. Thought process linear, coherent. Thought content related to stressors, denies any hopelessness or SI. Denies any aggressive ideation or HI. No paranoia or delusional content elicited. No evidence of psychosis. Insight and judgment - fair but adequate. Diagnostics Vital Signs (24Hr): BMI result Body Mass Index 30.4 Assessment & Plan Assessment & Plan (1) MDD (major depressive disorder), recurrent episode: Status: Acute Code(s): F33.9 - Major depressive disorder, recurrent, unspecified (2) Alcohol abuse: Status: Acute Code(s): F10.10 - Alcohol abuse, uncomplicated Plan Continue PHP continue Lexapro 10 mg qd continue trazodone 50-100 mg qhs prn sleep continue dicyclomine 10 mg qd? Routine lab work reviewed from 12/23/24 Continue to monitor Patient educated on: diagnosis and medication risk/benefits Informed Consent: understands Reason for contiued partial hosp. stay Substantial Risk for: med/psych decompensation Certification I certify that partial hospital treatment is medically necessary due to the symptoms and problems resulting from the patient's mental illness and the failure to treat the patient at the partial hospital level of care would likely result in the patient requiring inpatient psychiatric care which could not be prevented at a less intensive level of care. Total time managing care of this patient today __30__ minutes. Discharge Plan Discharge Attending provider: Judy Alfaro Additional Instructions: New PCP appointment with [facility] at [address] [place] [address], [address] [place], [place]. on July 07, 2025 at 1:00 pm. Office # [phone]. Medications: Continued trazodone 50 mg Tablet 50 mg PO BEDTIME MRX1 PRN (Reason: Insomnia) Qty: 60 0RF dicyclomine 10 mg Capsule 10 mg PO TIDAC Qty: 90 0RF escitalopram oxalate 10 mg Tablet 10 mg PO DAILY Qty: 30 0RF Stand Alone Forms: Patient Portal Discharge page Print Language: Togolese
--- NOTE | 2025-01-12 11:09 | P.PNPSP_ITS ---
Subjective Subjective Date of Service: 01/12/25 Reason For Visit: depression Mental Status Exam Mental Status Exam Narrative: Alert, oriented, in no acute distress. Calm, cooperative, engaged, appears nervous. Prominent scar across top of head. Pleasant. Eye contact. No psychomotor agitation or neurovegetative retardation. Eye contact maintained. Mood anxious, affect variable, brighter than expected, mood congruent. Speech normal. Thought process linear, coherent. Thought content related to stressors, denies any hopelessness or SI. Denies any aggressive ideation or HI. No paranoia or delusional content elicited. No evidence of psychosis. Insight and judgment - fair but adequate. Diagnostics Vital Signs (24Hr): BMI result Body Mass Index 30.4 Assessment & Plan Assessment & Plan (1) MDD (major depressive disorder), recurrent episode: Status: Acute Code(s): F33.9 - Major depressive disorder, recurrent, unspecified (2) Alcohol abuse: Status: Acute Code(s): F10.10 - Alcohol abuse, uncomplicated Plan Continue PHP continue Lexapro 10 mg qd continue trazodone 50-100 mg qhs prn sleep continue dicyclomine 10 mg qd? Routine lab work reviewed from 12/23/24 Continue to monitor Patient educated on: diagnosis, medication risk/benefits and substance abuse Informed Consent: understands Reason for contiued partial hosp. stay Substantial Risk for: stable for discharge Certification I certify that partial hospital treatment is medically necessary due to the symptoms and problems resulting from the patient's mental illness and the failure to treat the patient at the partial hospital level of care would likely result in the patient requiring inpatient psychiatric care which could not be prevented at a less intensive level of care. Total time managing care of this patient today ____ minutes. Discharge Plan Discharge Attending provider: Judy Alfaro Additional Instructions: New PCP appointment with [facility] at [address] [place] [address], [address] [place], [place]. on July 07, 2025 at 1:00 pm. Office # [phone]. Medications: New liothyronine 5 mcg tablet 5 mcg PO DAILY Qty: 30 0RF Continued trazodone 50 mg Tablet 50 mg PO BEDTIME MRX1 PRN (Reason: Insomnia) Qty: 60 0RF dicyclomine 10 mg Capsule 10 mg PO TIDAC Qty: 90 0RF Changed escitalopram oxalate 10 mg Tablet 15 mg PO DAILY Qty: 45 0RF Stand Alone Forms: Patient Portal Discharge page Patient Education: Depression (ED), Depression (DC) Print Language: Palestinian
--- NOTE | 2025-01-12 11:34 | HO.PHPPROGNO ---
Subjective Subjective Date of Service: 01/12/25 Reason For Visit: depression Diagnostics Vital Signs (24Hr): BMI result Body Mass Index 30.4 Assessment & Plan Certification I certify that partial hospital treatment is medically necessary due to the symptoms and problems resulting from the patient's mental illness and the failure to treat the patient at the partial hospital level of care would likely result in the patient requiring inpatient psychiatric care which could not be prevented at a less intensive level of care. Total time managing care of this patient today ____ minutes. Discharge Plan Discharge Attending provider: Judy Alfaro Additional Instructions: New PCP appointment with [facility] at [address] [place] [address], [address] [place], [place]. on July 07, 2025 at 1:00 pm. Office # [phone]. Medications: New liothyronine 5 mcg tablet 5 mcg PO DAILY Qty: 30 0RF Continued trazodone 50 mg Tablet 50 mg PO BEDTIME MRX1 PRN (Reason: Insomnia) Qty: 60 0RF dicyclomine 10 mg Capsule 10 mg PO TIDAC Qty: 90 0RF Changed escitalopram oxalate 10 mg Tablet 15 mg PO DAILY Qty: 45 0RF Stand Alone Forms: Patient Portal Discharge page Patient Education: Depression (ED), Depression (DC) Print Language: Turkmen
== END 2025-01-12 23:59 | disposition home or self-care (01) ==
LOC: HO.PHPA 09:45
PROVIDERS: Visit Provider Psychiatry & Neurology Psychiatry
DX: F33.9 Major depressive disorder, recurrent, unspecified (principal); F10.10 Alcohol abuse, uncomplicated; Z79.899 Other long term (current) drug therapy
CPT/HCPCS: 90791; 90853